=== PATIENT | female | born 1965 | race Caucasian/White ===

== ENCOUNTER 2020-09-24 09:35 | Inpatient (IN) | payer MEDICARE, MEDICAID, SELFPAY ==
--- NOTE | ~2020-09-24 | CT_ITS ---
EXAMINATION: CT guide absc cath placement, CT guide absc cath placement, CT guide absc cath placement DATE: 10/01/2020 14:43 INDICATION: Ruptured appendix with multiple intraperitoneal abscesses. TECHNIQUE: The procedure including the risks and benefits was discussed with the patient. Risks discu ssed included bleeding, allergic reaction and infection. The patient understood the risks and benefit s and agreed to proceed. The patient was confirmed to be receiving appropriate antibiotic coverage. C onscious sedation was provided by the department of anesthesia. An initial apparel cutter CT was obtained foll owing administration of with 100 mL Omnipaque-350 intravenous contrast. The skin overlying the midlin e infraumbilical region and left lower quadrant of the abdomen was prepped and draped in usual steril e fashion. Anesthetic was administered with 1% lidocaine subcutaneously. An 18-gauge trochar cathete r was inserted into both the midline and left lower quadrant loculated fluid collections utilizing CT guidance. The inner stylettes were removed with spontaneous efflux of cloudy yellowish fluid from deana th needles. 2 wires were advanced through both needles with positioning within the fluid collections confirmed by CT utilizing Seldinger technique the needle was removed over the wires and the tract ser ially dilated to 8 Estonian on the left and 10 Estonian at the midline. An 8.5 Fr catheter was inserted o candelario the wire into the left lower quadrant intraperitoneal fluid collection and a 10 Fr catheter was i nserted over the second wire into the midline infraumbilical intraperitoneal fluid collection. The lo ops were formed and locked and position confirmed by CT after which the metal stiffeners and wires we re removed. by trocar technique. The catheter was stitched to the skin with suture and antibiotic oin tment and sterile dressings were applied. 20 mL of fluid was aspirated from the midline fluid collect ion and 5 mL from the left lower quadrant fluid collection and sent to the lab for Gram stain and cul tures. Both catheters were then attached to suction drainage and were draining additional fluid. Attention was then transferred to the right lower quadrant periappendiceal gas and fluid collection. Additional apparel cutter CT images were obtained and this site was prepped and draped in usual sterile fashio n. Anesthetic was administered with 1% lidocaine subcutaneously. An 18-gauge trocar needle was advanc ed into the gas and fluid collection with positioning confirmed by CT. Utilizing similar Seldinger te chnique, a J-wire was advanced through the needle which was removed and the track serially dilated to 10 Fr and a 10 Fr catheter was placed with position confirmed by CT. The stiffener and wire were rem maribell,, antibiotic ointment applied, the catheter stitched to the skin and a sterile dressing applied. 10 mL of opaque cardona foul-smelling fluid was aspirated and sent to the lab for Gram stain and cultures . The catheter was then attached to suction drainage and was draining additional fluid at the conclus ion of the procedure. There were no immediate complications. The dose-length product was 779.57 mGy-cm for the placement of the first 2 abscess drains and 365.30 mGy-cm for the third drainage catheter placement. FINDINGS: CT images demonstrate catheters positioned within the largest midline pelvic likely intrape ritoneal fluid collection, within the smaller left lower quadrant intraperitoneal fluid collection an d finally into the gas and fluid collection at the site of the ruptured appendix. Fluid was aspirated from each collection for testing. IMPRESSION: 1. Successful CT-guided abscess drainage catheter placements in the midline of the pelvis and in both the left and right lower quadrants. 2. Aspirated fluid was sent for Gram stain and aerobic and anaerobic cultures from each of the draina ge catheters. 3. The catheters will be managed by
--- NOTE | ~2020-09-24 | CT_ITS ---
EXAMINATION: CT abdomen pelvis wo con DATE: 09/24/2020 11:42 INDICATION: Bowel perforation. Lower abdominal pain for 3 days. Nausea, vomiting and diarrhea. TECHNIQUE: Computed tomography (CT) of the abdomen and pelvis was performed without intravenous contr ast. The dose-length product was 1423.54 mGy-cm. Automated exposure control and iterative reconstruction technique were employed. COMPARISON: CT dated 11/19/2014. FINDINGS: Lung bases are unremarkable. Heart size normal. No significant pleural or pericardial effus ion. There is abnormal extraluminal gas and fluid in the expected location of the appendix in the right lo wer abdomen, suspicious for perforated appendicitis. Fatty infiltration of the liver. The spleen, pancreas, adrenal glands and left kidney are unremarkabl e. Right kidney is surgically absent. Small amount of free fluid in the pelvis. IMPRESSION: 1. Abnormal extraluminal fluid and gas in the expected location of the appendix, suspicious for perfo rated appendicitis. Dr. Antonio Bradford discussed with Dr. Ming Lagunas PA-C at 09/24/2020 11:55 CDT. Reviewed, dictated and finalized at location B. IMPRESSION: 1. Abnormal extraluminal fluid and gas in the expected location of the appendix , suspicious for perforated appendicitis. Dr. Antonio Bradford discussed with Dr. Ming Lagunas PA-C at 09/24/2020 11:55 CDT.
--- NOTE | ~2020-09-24 | CT_ITS ---
EXAMINATION: CT abdomen pelvis w con DATE: 09/29/2020 12:54 INDICATION: Ruptured appendicitis TECHNIQUE: Computed tomography (CT) of the abdomen and pelvis was performed with 100 mL Omnipaque-350 intravenous contrast. Automated exposure control and iterative reconstruction technique were employe d. The dose-length product was 1364.99 mGy-cm. COMPARISON: 09/24/2020 FINDINGS: Mild atelectasis at the lingula. Heart size is normal. No pericardial or pleural effusion. Diffuse he patic steatosis with focal sparing along the gallbladder fossa. Gallbladder, spleen, pancreas, bilate ral adrenal glands and left kidney are normal. Right kidney is not visualized and reportedly surgical ly absent. Bladder is normal. No pathologically enlarged abdominal or pelvic lymphadenopathy. Severe lower lumbar facet osteoarthritis. Small gas and fluid collection extending inferomedially from the tip of the cecum consistent with rup tured appendicitis. There are 3 larger and more well-defined rim-enhancing fluid collections in the p maury consistent with abscess. The largest is situated between the uterus and bladder measuring 9.5 x 3.4 x 4.5 cm. More posterior 7.6 x 3.5 x 4.3 cm collection along the left posterior margin of the no rmal uterus and more anterolateral 5.0 x 4.1 x 3.6 cm collection along side the left ovary and anteri or margin of the distal left iliopsoas muscle. IMPRESSION: 1. Persistent poorly defined small extra luminal gas and fluid collection in the expected region of t he nonvisualized appendix consistent with perforated appendicitis. 2. Increase in size and degree of organization of 3 loculated pelvic fluid collections consistent wit h abscess. Reviewed, dictated and finalized at location A. IMPRESSION: 1. Persistent poorly defined small extra luminal gas and fluid collection in th e expected region of the nonvisualized appendix consistent with perforated appe ndicitis. 2. Increase in size and degree of organization of 3 loculated pelvic fluid jazmine ections consistent with abscess.
--- NOTE | ~2020-09-24 | US_ITS ---
US renal BI 09/26/2020 16:09 Procedure: Realtime transabdominal ultrasound of the kidneys and bladder. Indication: Acute renal insufficiency Comparison: CT dated 09/24/2020 Findings: Right kidney is surgically absent. Left renal echotexture is normal without hydronephrosis, contour deforming mass or renal calculi. There is fatty infiltration of the liver. No abnormal enid s in the right renal fossa. Bladder wall is mildly thickened, possibly due to underdistention or cyst itis. Impression: 1: Mild bladder wall thickening which may be due to underdistention or cystitis. 2: Normal left kidney. Reviewed, dictated and finalized at location A. Impression: 1: Mild bladder wall thickening which may be due to underdistention or cystitis . 2: Normal left kidney.
[2020-09-24 09:41] VITALS: BP 100/65; PULSE 85; RESP 20; TEMP 36.4; O2SAT 95
[2020-09-24 10:15] LABS: Hematocrit 44.1 % (37.0-47.0); Hemoglobin 14.3 g/dL (12.0-15.0); Mean Corpuscular HGB Conc 32.4 g/dl (32-36); Mean Corpuscular Hemoglobin 28.6 pg (26-34); Mean Corpuscular Volume 88.2 fl (80-100); Mean Platelet Volume 9.7 fl (7.4-10.4); Platelet Count Result 335 k/mm3 (150-375)
[2020-09-24] MEDS: SODIUM CHLORIDE 0.9% IV 1,000 ML 999 ML IV CONT (10:15)
[2020-09-24] MEDS: ONDANSETRON INJ 4 MG/2 ML VIAL IV PUSH (10:15)
[2020-09-24] MEDS: FAMOTIDINE 20 MG/2 ML VIAL IV PUSH ×2 (10:15→20:47)
[2020-09-24] MEDS: MORPHINE SULFATE (*CRX) 4 MG/ML INJ IV PUSH ×2 (10:15→14:35)
[2020-09-24 10:24] LABS: Alanine Aminotransferase 9 U/L (4-35); Albumin Level 3.7 g/dL (3.5-5.1); Alkaline Phosphatase 82 U/L (38-126); Anion Gap 12 mmol/L (8-16); Aspartate Amino Transferase 19 U/L (14-36); Bilirubin,Total 0.7 mg/dL (0.2-1.3); Blood Urea Nitrogen 19 mg/dL (7-17); Calcium 9.3 mg/dL (8.4-10.2); Carbon Dioxide 21 mmol/L (22-30); Chloride 101 mmol/L (98-107); Estimated CRCL calculation 40 ml/min; Estimated Glomerular Filt Rate 29; Glucose 145 mg/dL (65-105); Lipase 46 U/L (23-300); Potassium 3.9 mmol/L (3.4-5.0); Sodium 134 mmol/L (137-145)
[2020-09-24 10:54] LABS: Add Urine Microscopic? YES; Appearance Urine Clear (Clear); Bacteria Urine Trace /hpf; Bilirubin Urine Negative (Negative); Blood Urine 2+ (Negative); Color Urine Amber (Yellow); Glucose Urine UA Negative (Negative); Ketones Urine Negative (Negative); Leukocyte Esterase Ur Negative LEU/UL (Negative); Mucus Urine Few /lpf; Nitrate Urine Negative (Negative); Protein Urine 1+ mg/dL (Negative); RBC Urine 51-75 /hpf (0-2); Specific Grav Ur 1.026 (1.001-1.035); Squamous Epithelial Cell Urine Occasional /hpf (Few); WBC Urine 0-3 /hpf
[2020-09-24] MEDS: HYDROmorphone HCL INJ (*CRX) 1 MG/ML SYR IV PUSH ×2 (11:10→20:48)
[2020-09-24 11:34] LABS: Band Neutrophils Percent 1 % (0-6); Lymphocytes Absolute Manual 3.74 K/mm3 (1.1-4.5); Monocytes Absolute Manual 1.76 K/mm3 (0.1-0.90); Monocytes Percent Manual 8 % (3-9); Neutrophils Percent Manual 74 % (46-73); Platelet Estimate Adequate (Adequate); Total Cells Counted 100
--- NOTE | 2020-09-24 11:39 | ED.GENADULT ---
HPI - General Adult General Chief complaint: Abdominal Pain Stated complaint: bilateral lower abd pain x 3days Time Seen by Provider: 09/24/20 09:49 Source: patient and RN notes reviewed Mode of arrival: ambulatory Limitations: no limitations History of Present Illness HPI narrative: Patient is a 54-year-old female who presents with 3 to 4 days duration of generalized abdominal pain worse in the periumbilical region patient notes that one of her family members had had some similar type symptoms and thought maybe this was the causative etiology patient on arrival to emergency department per EMS appears uncomfortable patient notes she had had some diarrhea and emesis a few days ago but has since not had a bowel movement in a couple of days patient denies rectal bleeding melena or hematemesis. Denies similar occurrence in the past and has not taken anything for her symptoms Related Data Home Medications Medication Instructions Recorded Confirmed alprazolam 1 mg PO QID PRN 09/24/20 metoprolol tartrate 200 mg PO DAILY 09/24/20 topiramate 100 mg PO TID 09/24/20 venlafaxine 75 mg PO DAILY 09/24/20 Allergies Allergy/AdvReac Type Severity Reaction Status Date / Time Penicillins Allergy Unknown Rash Verified 09/24/20 09:45 Review of Systems Review of Systems: All systems reviewed & are unremarkable except as noted in HPI and below PMFSH Past Medical History Medical History (Updated 09/24/20 @ 13:56 by Ming Lagunas PA-C) Chronic pain Peripheral neuropathy Social History Social History (Updated 09/24/20 @ 11:43 by Ming Lagunas PA-C) Smoking status: Current every day smoker Exam Narrative: Exam Narrative: GENERAL: Well-appearing, well-nourished, uncomfortable and in no acute distress. HEAD: Normocephalic, atraumatic. EYES: PERRLA and EOMI. ENT: Nares clear, no rhinorrhea or epistaxis. Mucous membranes moist. CHEST: Clear to auscultation. No respiratory distress. No wheezes rales or rhonchi HEART: Regular rate and rhythm. No murmur heard. Normal peripheral pulses. ABDOMEN: Soft, generalized tenderness with voluntary guarding, nondistended EXTREMITIES: Normal range of motion. No edema. SKIN: Warm, dry, no rash. NEURO: No focal deficits. Alert and oriented x3. PSYCH: Normal mood and affect. Course Course Emergency Course: Patient found to have ruptured appendicitis was given antibiotics fluids and pain medications in the emergency department discussion was made with surgeon who will admit the patient patient at this time continues to have pain and discomfort despite medications is aware of the case findings treatment plan and diagnosis and agrees to stay in hospital patient was seen by the surgical team in the emergency department. Consultations Consultation #1: Discussed case with Dr. Smalls who would like antibiotics continued hydration pain management and for the patient to be admitted to his service Date: 09/24/20 Vital Signs Vital signs: Vital Signs Temperature 97.5 F L 09/24/20 09:41 Pulse Rate 85 09/24/20 09:41 Respiratory Rate 20 09/24/20 09:41 Blood Pressure 100/65 09/24/20 09:41 Pulse Oximetry 95 09/24/20 09:41 Temperature 97.5 F L 09/24/20 09:41 Pulse Rate 112 H 09/24/20 12:34 Respiratory Rate 16 09/24/20 12:34 Blood Pressure 107/78 09/24/20 12:34 Pulse Oximetry 94 09/24/20 12:34 Medical Decision Making MDM Narrative Medical decision making narrative: ABCs and vital signs intact and stable patient found to have ruptured appendicitis hydrated and given antibiotics in the emergency department and will be admitted to the surgical service Vital Signs Vital Signs: Vital Signs Temperature 97.5 F L 09/24/20 09:41 Pulse Rate 85 09/24/20 09:41 Respiratory Rate 20 09/24/20 09:41 Blood Pressure 100/65 09/24/20 09:41 Pulse Oximetry 95 09/24/20 09:41 Temperature 97.5 F L 09/24/20 09:41 Pulse Rate 112 H 09/24/20 12:34 Respiratory Rate
[2020-09-24 12:29] LABS: Lactic Acid Reflex 1.6 mmol/L (0.7-2.1)
--- NOTE | 2020-09-24 12:32 | ECG_ITS ---
Measurements Intervals [place] Rate: 121 P: 36 [place]: 137 QRS: 9 QRSD: 99 T: 31 QT: 304 QTc: 432 Interpretive Statements SINUS TACHYCARDIA BASELINE ARTIFACT- II, III, AVF, V1-V3 ABNORMAL ECG Electronically Signed On 09-24-2020 19:06:50 CDT by Nicholas Levy D.O.
[2020-09-24 12:34] VITALS: BP 107/78; PULSE 112; RESP 16; O2SAT 94
[2020-09-24] MEDS: ERTAPENEM 1 GM/NS 50 ML 1 GM/50 ML BAG IVPB (12:39)
--- NOTE | 2020-09-24 14:46 | PM.IMHP ---
H&P: HPI History of Present Illness Date/Time: 09/24/20 14:46 Chief Complaint: RLQ abdominal pain Narrative: This is a 54-year-old female with a history of tachyarrhythmias, migraines, tobacco abuse, and kidney cancer status post right nephrectomy 10 years ago. She reports having nausea and vomiting early last week. She had attributed this to a viral gastroenteritis because her grandson had similar symptoms from a virus a few days prior. These symptoms resolved and she developed lower abdominal pain 3 days ago around 5:00 am. The pain was constant, but tolerable initially. Yesterday, her pain became progressively worse and was intolerable by this morning. Due to the unrelenting pain, she presented to the ER for further evaluation. CT scan of the abdomen and pelvis showed abnormal extraluminal fluid and gas in the expected location of the appendix, suspicious for perforated appendicitis. Labs showed a white blood cell count of 22,000, lactic acid 1.6, sodium 134, BUN 19, and creatinine 1.8. In the ER, she became tachycardic with a heart rate of 112. EKG performed and showed sinus tachycardia. Our service was contacted by the ER provider for evaluation of abdominal pain and possible acute perforated appendicitis. The patient is now seen in the ER. She is still very uncomfortably and reports that her abdominal pain became more localized in the RLQ yesterday. Denies fever or chills. She is unsure of when her last bowel movement was, but reports that her stools have remained loose following her diarrhea last week. Urinalysis had 51-75 RBCs. She denies any recent menstrual cycles, which she only has every few months. No other recent urinary symptoms. She also reports poor oral intake over the past few days. No other complaints at this time. Patient thought that she has had a colonoscopy in the past at [facility], but could not recall any further information regarding this. I reviewed our records and do not see a colonoscopy in the past at this facility, although she has had an EGD with esophageal dilatation in 2010. Review of Systems Review of Systems: All systems reviewed & are unremarkable except as noted in HPI and below Constitutional: Constitutional: Reports as per HPI, Denies chills, Denies fatigue and Denies fever(s) Eyes: Eyes: Reports no additional eye complaints and Denies change in vision ENT: Reports system reviewed and no additional complaints, except as documented, Reports Normal hearing present and Denies dizziness Cardiovascular: Cardiovascular: Reports no additional cardiovascular complaints, Denies chest pain, Denies leg edema and Denies dyspnea Respiratory: Respiratory: Reports no additional respiratory complaints, Denies cough and Denies dyspnea Gastrointestinal: Gastrointestinal: Reports as per HPI, Reports no additional gastrointestinal complaints and Reports abdominal pain Genitourinary: Genitourinary: Denies hematuria and Denies dysuria Musculoskeletal: Musculoskeletal: Denies abnormal gait, Denies deformity, Denies joint swelling, Denies numbness and Denies tingling Integumentary/Breasts: Skin/Breast: Denies wounds and Denies jaundice Neurologic: Reports system reviewed and no additional complaints, except as documented, Reports Normal hearing present, Denies abnormal gait, Denies dizziness, Denies focal weakness, Denies numbness and Denies tingling Psychiatric: Psychiatric: Denies anxiety and Denies depression Endocrine: Endocrine: Denies fatigue [facility] Past Medical History Medical History (Updated 09/24/20 @ 15:31 by LISA Carlton) Anxiety Chronic pain Depression History of hypertension History of supraventricular tachycardia History of SVT and hypertension, which she takes metoprolol for now. Migraines Peripheral neuropathy Tobacco abuse Surgical History Surgical History (Updated 09/24/20 @ 15:16 by LISA Carlton) History of esophagogastroduodenoscopy (EGD) EGD with dilatation of an esophageal
[2020-09-24 15:10] VITALS: BP 102/66; PULSE 118; RESP 20; O2SAT 94
--- NOTE | 2020-09-24 15:36 | ADMGEN ---
This patient, Katherine Nuno, was admitted to 2 Medical Room 260-01. Patient/family oriented to hospital policies and general routines including ID bracelet, bed and alarms, visiting hours, pain management, procedures, bathroom and other care routines, personal items, smoking policy, room service/diet, and visiting hours. Information on how to activate the Rapid Response Team has been discussed. Patient/Family are encouraged to report perceived risks to care and to ask questions if they do not understand what they are told or what they should do.
[2020-09-24 16:00] VITALS: PULSE 109
[2020-09-24] MEDS: LACTATED RINGERS 1,000 ML 125 ML IV CONT (16:03)
[2020-09-24] MEDS: metroNIDAZOLE 500 MG/ISO 100ML 500 MG/100 ML BAG 100 MG IVPB ×2 (16:03→21:35)
[2020-09-24] MEDS: NICOTINE (*PBKC) 21 MG PATCH 1 PATCH TRANSDERM (17:23)
[2020-09-24] MEDS: PANTOPRAZOLE SODIUM IV 40 MG VIAL IV PUSH (17:23)
[2020-09-24 20:00] VITALS: PULSE 94
[2020-09-24 20:42] VITALS: BP 98/62; PULSE 88; RESP 20; TEMP 36.6; O2SAT 97
[2020-09-24] MEDS: VENLAFAXINE HCL XR 75 MG CAP.ER.24H PO (20:47)
[2020-09-25] VITALS (10 sets, daily range): BP systolic 100–112; BP diastolic 59–73; PULSE 65–106; RESP 20; TEMP 35.6–36.1; O2SAT 94–100
[2020-09-25] MEDS: HYDROmorphone HCL INJ (*CRX) 1 MG/ML SYR IV PUSH ×4 (01:47→19:35)
[2020-09-25] MEDS: LACTATED RINGERS 1,000 ML 125 ML IV CONT (04:43)
[2020-09-25 05:39] LABS: Basophils Percent Auto 0.2 % (0.2-1.2); Eosinophils Percent Auto 0.1 % (0-4.4); Hematocrit 38.3 % (37.0-47.0); Hemoglobin 12.4 g/dL (12.0-15.0); Immature Granulocyte Absolute 0.11 K/mm3 (0.00-0.031); Immature Granulocyte Percent A 0.6 % (0-0.5); Lymphocytes Absolute Auto 1.15 K/mm3 (0.9-3.2); Lymphocytes Percent Auto 6.3 % (18.3-44.2); Mean Corpuscular HGB Conc 32.4 g/dl (32-36); Mean Corpuscular Hemoglobin 28.6 pg (26-34); Mean Corpuscular Volume 88.5 fl (80-100); Monocytes Absolute Auto 0.8 K/mm3 (0.1-0.6); Monocytes Percent Auto 4.3 % (2.6-8.5); Neutrophils Absolute Auto 16.2 K/mm3 (1.3-6.7); Neutrophils Percent Auto 88.5 % (45.5-73.1); Platelet Count Result 315 k/mm3 (150-375); Red Blood Count 4.33 M/mm3 (4.2-5.4); Red Cell Distribution Width 14.6 % (11.5-14.5); White Blood Count 18.3 K/mm3 (4.5-10.0)
[2020-09-25] MEDS: metroNIDAZOLE 500 MG/ISO 100ML 500 MG/100 ML BAG 100 MG IVPB ×3 (05:40→21:12)
[2020-09-25 05:49] LABS: Magnesium 1.5 mg/dL (1.6-2.3)
[2020-09-25 05:50] LABS: Alanine Aminotransferase 9 U/L (4-35); Albumin Level 3.2 g/dL (3.5-5.1); Alkaline Phosphatase 69 U/L (38-126); Anion Gap 11 mmol/L (8-16); Aspartate Amino Transferase 22 U/L (14-36); Bilirubin,Total 1.1 mg/dL (0.2-1.3); Blood Urea Nitrogen 28 mg/dL (7-17); Calcium 8.4 mg/dL (8.4-10.2); Carbon Dioxide 21 mmol/L (22-30); Chloride 102 mmol/L (98-107); Estimated CRCL calculation 36 ml/min; Estimated Glomerular Filt Rate 26; Glucose 120 mg/dL (65-105); Sodium 134 mmol/L (137-145)
[2020-09-25] MEDS: ERTAPENEM 1 GM/NS 50 ML 1 GM/50 ML BAG IVPB (08:38)
[2020-09-25] MEDS: METOPROLOL TARTRATE 50 MG TAB 200 MG PO (08:38)
[2020-09-25] MEDS: FAMOTIDINE 20 MG/2 ML VIAL IV PUSH ×2 (08:39→21:12)
[2020-09-25] MEDS: TOPIRAMATE 100 MG TABLET PO ×3 (08:39→23:45)
[2020-09-25] MEDS: NICOTINE (*PBKC) 21 MG PATCH 1 PATCH TRANSDERM (08:40)
[2020-09-25] MEDS: PANTOPRAZOLE SODIUM IV 40 MG VIAL IV PUSH (08:40)
--- NOTE | 2020-09-25 13:49 | PM.PNGS ---
Progress Note: A&P Assessment and Plan (1) Appendicitis with perforation: Code(s): K35.32 - Acute appendicitis with perforation and localized peritonitis, without abscess Status: Acute Assessment and Plan: CT showed a small localized area of extraluminal gas and fluid in the expected area of the appendix, suggesting perforated acute appendicitis, and treating as such. Continue broad-spectrum IV antibiotics. Pain has improved and WBC coming down today. Will start a clear liquid diet. Encouraged walking the halls. Repeat labs tomorrow. (2) Sepsis: Code(s): A41.9 - Sepsis, unspecified organism Status: Acute Assessment and Plan: Sepsis criteria met with tachycardia and leukocytosis in the setting a known infection. Likely secondary to #1 above. Blood cultures pending. Tachycardia improved with IV fluids. Continue IV ertapenem/metronidazole. WBC trending down to 18,000 today. Trend labs. (3) Acute renal failure (ARF): Code(s): N17.9 - Acute kidney failure, unspecified Status: Acute Assessment and Plan: Creatinine up to 2.0 today with hematuria. S/p right nephrectomy 10 years ago. Continue IV fluids at current rate. Consult Nephrology for their recommendations. (4) Hematuria: Code(s): R31.9 - Hematuria, unspecified Status: Acute Assessment and Plan: Will order straight cath and send urine for UA with micro with culture. See plan above, Nephrology consulted. Additional Plan I have discussed the patient's case and plan of care with Dr. Smalls. Subjective Subjective Date/Time Seen: 09/25/20 13:49 Patient reports: feels better, pain is less, flatus, no bowel movement and afebrile Interval history: Patient seen this afternoon and reports she feels better in regards to her abdominal pain. She feels this is more tolerable and she is more comfortable. Denies nausea, vomiting, or bloating. She does complain of burning with voiding and since admission has noticed her urine has started to appear more red. She has no other complaints. She does report that 6 weeks ago she had a bidet installed on her toilet and has been using this to rinse after going to the bathroom. She also now thinks today that the burning with voiding may have been present for a few days. Review of Systems Review of Systems: All systems reviewed & are unremarkable except as noted in HPI and below Exam Const: General: comfortable, no acute distress, alert and awake Orientation/consciousness: patient oriented x3 Resp: Effort & Inspection: normal respiratory effort Auscultation: wheezes expiratory wheezes (anteriorly in upper lobes) and diminished lung sounds bilateral throughout Cardio: Rate: regular rate Rhythm: regular rhythm GI: Inspection: non-distended and obesity GI Palp: Yes Soft to palpation, Yes Tenderness to palpation present (GI) (nail making machine tender diffusely but worse in RLQ, improved from yesterday), Yes Guarding due to palpation present (GI) (RLQ) and No Rebound tenderness present Auscultation: Hypoactive bowel sounds present Skin: General skin exam: normal color Neuro: General: moves all extremities and no focal motor deficits Extrem: General: no clubbing, cyanosis or edema and no calf tenderness Psych: Mental Status: mental status grossly normal Insight: Good insight present (Psych) Judgement: Good judgement present (Psych) Objective Data Vital Signs Vital Signs: Vital Signs - 24 hr 09/24/20 15:10 09/24/20 16:00 09/24/20 20:00 Temperature Pulse Rate 118 H 109 H 94 Respiratory Rate 20 Blood Pressure 102/66 Pulse Oximetry 94 09/24/20 20:42 09/25/20 00:00 09/25/20 04:00 Temperature 97.9 F Pulse Rate 88 99 100 Respiratory Rate 20 Blood Pressure 98/62 L Pulse Oximetry 97 09/25/20 05:15 09/25/20 08:00 09/25/20 10:03 Temperature 97 F L Pulse Rate 65 100 Respiratory Rate 20 Blood Pressure 106/73 112/65 Pulse Oximetry 94 94 Intake/Out
[2020-09-25] MEDS: LACTATED RINGERS 1,000 ML 150 ML IV CONT (15:28)
[2020-09-25 15:58] LABS: Add Urine Microscopic? YES; Appearance Urine Clear (Clear); Bacteria Urine Trace /hpf; Bilirubin Urine Negative (Negative); Blood Urine 2+ (Negative); Color Urine Amber (Yellow); Glucose Urine UA Negative (Negative); Ketones Urine Negative (Negative); Leukocyte Esterase Ur Negative LEU/UL (Negative); Mucus Urine Rare /lpf; Nitrate Urine Negative (Negative); Protein Urine 1+ mg/dL (Negative); Specific Grav Ur 1.025 (1.001-1.035); Squamous Epithelial Cell Urine Rare /hpf (Few); WBC Urine 0-3 /hpf
--- NOTE | 2020-09-25 16:44 | PM.CNNEP ---
Assessment and Plan Assessment and plan (1) Acute renal failure (ARF): Code(s): N17.9 - Acute kidney failure, unspecified Status: Acute Assessment and Plan: presumably normal baseline creatinine known history of solitary kidney due to infection/early sepsis (from #3)? check renal ultrasound check urine electrolytes and urine eosinophils follow trend of UOP and repeat labs (2) Hematuria: Code(s): R31.9 - Hematuria, unspecified Status: Acute Assessment and Plan: as noted by urinalysis related to infection? follow trend for now may need Urological evaluation if persists (3) Appendicitis with perforation: Code(s): K35.32 - Acute appendicitis with perforation and localized peritonitis, without abscess Status: Acute Assessment and Plan: as noted by admission imaging General Surgery following on IV antibiotics follow cultures Long and extensive discussion (> 20 minutes) with patient and her daughter at bedside regarding the above issues along with evaluation to date/further testing as well as plan of care. Will continue to follow. History of Present Illness Reason for Consult Consult date: 09/25/20 Reason for consult: acute renal failure Chief Complaint Chief complaint: perforated appendicitis History of Present Illness Narrative: The patient is a 54-year-old female with a past medical history as outlined below who presented to [facility] Emergency room with complaints of abdominal pain. The patient developed abdominal pain approximately 3 days prior to admission. Initially, the pain was constant but tolerable. However over the course of the next few days the pain became progressively more worse and eventually so severe and unrelenting that she presented to the emergency room. It should be noted that she did have some issues with nausea and vomiting earlier in the week which she attributed this to a possible gastroenteritis as she had known sick contacts with similar symptoms. The nausea vomiting is Leslie eventually resolved prior to the abdominal pain that she currently presented with to the emergency room. Workup and evaluation emergency room demonstrated the patient to be hemodynamically stable but quite high quite tachycardic. She was in a significant amount of pain localized to the right lower quadrant. Routine blood test demonstrated elevated white blood cell count, mildly elevated lactic acid, an elevated BUN and creatinine. A CT scan of the abdomen pelvis was done given her abdominal pain which demonstrated possible acute perforated appendicitis with findings of abnormal extraluminal fluid and gas in the expected location of the appendix. She reported no a issues or problems with fevers or chills Um but does note that she has not had a bowel movement in a while. Her urinalysis was significant for abundant red blood cells but she denies any symptoms of dysuria or increased urination. With the a for mentioned abdominal pain, she does report though that she is not being drinking very well. Given these constellation of symptoms and laboratory / imaging findings, General surgery was consulted and she an appropriate cultures were obtained and she was started on broad-spectrum IV antibiotic therapy. Since her admission, she has been continue on IV antibiotic therapy with slow improvement in her white blood cell count and abdominal symptoms. Unfortunately, despite IV fluid resuscitation, her kidney function has not really improved all that much and she still has up persistent evidence of microscopic hematuria without overt evidence of urinary tract infection. Renal consultation was requested due to her acute kidney injury/acute renal failure as well as her hematuria. From my discussion with the patient, despite her history of only 1 kidney secondary to a right nephrectomy approximately 10 years ago, she has never been told that she had any issue
[2020-09-25] MEDS: ACETAMINOPHEN 500 MG TABLET 1000 MG PO (21:12)
[2020-09-25] MEDS: MAGNESIUM OXIDE 400 MG TABLET PO (21:12)
[2020-09-25] MEDS: VENLAFAXINE HCL XR 75 MG CAP.ER.24H PO (21:12)
[2020-09-26] VITALS (10 sets, daily range): BP systolic 103–122; BP diastolic 63–64; PULSE 75–102; RESP 18–22; TEMP 36.1–36.9; O2SAT 95–100
[2020-09-26 01:30] LABS: Creatinine Urine 67.1 mg/dL; Total Protein Urine Random 22 mg/dL; Ur Ttl Prot Creatinine Ratio 0.33 mg/mg (0-0.20)
[2020-09-26 01:36] LABS: Sodium Urine Random < 5 meq/L
[2020-09-26] MEDS: HYDROmorphone HCL INJ (*CRX) 1 MG/ML SYR 0.5 MG IV PUSH ×2 (01:53→21:27)
[2020-09-26] MEDS: LACTATED RINGERS 1,000 ML 150 ML IV CONT ×3 (01:57→20:42)
[2020-09-26] MEDS: ACETAMINOPHEN 500 MG TABLET 1000 MG PO ×3 (05:13→20:44)
[2020-09-26] MEDS: metroNIDAZOLE 500 MG/ISO 100ML 500 MG/100 ML BAG 100 MG IVPB ×3 (05:13→20:44)
[2020-09-26 05:47] LABS: Basophils Percent Auto 0.2 % (0.2-1.2); Eosinophils Absolute Auto 0.2 K/mm3 (0-0.3); Eosinophils Percent Auto 1.3 % (0-4.4); Hematocrit 35.5 % (37.0-47.0); Hemoglobin 11.5 g/dL (12.0-15.0); Immature Granulocyte Percent A 1.4 % (0-0.5); Lymphocytes Absolute Auto 1.11 K/mm3 (0.9-3.2); Lymphocytes Percent Auto 7.5 % (18.3-44.2); Mean Corpuscular HGB Conc 32.4 g/dl (32-36); Mean Corpuscular Hemoglobin 28.3 pg (26-34); Mean Corpuscular Volume 87.2 fl (80-100); Mean Platelet Volume 10.3 fl (7.4-10.4); Monocytes Absolute Auto 0.4 K/mm3 (0.1-0.6); Monocytes Percent Auto 2.9 % (2.6-8.5); Neutrophils Absolute Auto 12.8 K/mm3 (1.3-6.7); Neutrophils Percent Auto 86.7 % (45.5-73.1); Platelet Count Result 291 k/mm3 (150-375); Red Blood Count 4.07 M/mm3 (4.2-5.4); Red Cell Distribution Width 14.6 % (11.5-14.5); White Blood Count 14.8 K/mm3 (4.5-10.0)
[2020-09-26] MEDS: HYDROmorphone HCL INJ (*CRX) 1 MG/ML SYR IV PUSH ×2 (05:54→12:46)
[2020-09-26 05:59] LABS: Albumin Level 3.1 g/dL (3.5-5.1); Anion Gap 10 mmol/L (8-16); Blood Urea Nitrogen 22 mg/dL (7-17); Calcium 8.3 mg/dL (8.4-10.2); Carbon Dioxide 23 mmol/L (22-30); Chloride 102 mmol/L (98-107); Estimated CRCL calculation 58 ml/min; Estimated Glomerular Filt Rate 47; Glucose 87 mg/dL (65-105); Magnesium 1.8 mg/dL (1.6-2.3); Phosphorus 3.3 mg/dL (2.5-4.5); Potassium 3.4 mmol/L (3.4-5.0); Sodium 135 mmol/L (137-145)
[2020-09-26 07:34] LABS: Eosinophil Urine None Seen % (None Seen)
--- NOTE | 2020-09-26 09:13 | PM.PNGS ---
Progress Note: A&P Assessment and Plan (1) Appendicitis with perforation: Code(s): K35.32 - Acute appendicitis with perforation and localized peritonitis, without abscess Status: Acute Assessment and Plan: CT showed a small localized area of extraluminal gas and fluid in the expected area of the appendix, suggesting perforated acute appendicitis, and treating as such. Continue broad-spectrum IV antibiotics. Pain has improved and WBC coming down today. Will advanced to full liquid diet. Will give a Dulcolax suppository today. Encouraged increasing activity. Repeat labs tomorrow. (2) Sepsis: Code(s): A41.9 - Sepsis, unspecified organism Status: Acute Assessment and Plan: Sepsis criteria met with tachycardia and leukocytosis in the setting a known infection. Likely secondary to #1 above. Blood cultures showing gram-negative bacilli in anaerobic bottle only, awaiting final results. Continue IV ertapenem/metronidazole. WBC continues to trend down. Trend labs. (3) Acute renal failure (ARF): Code(s): N17.9 - Acute kidney failure, unspecified Status: Acute Assessment and Plan: Creatinine improving down to 1.2 today. S/p right nephrectomy 10 years ago. Appreciate Nephrology's help. (4) Hematuria: Code(s): R31.9 - Hematuria, unspecified Status: Acute Assessment and Plan: Straight cath urinalysis showed much less RBCs (3-5), negative nitrate, negative leukocytes, 2+ blood, 1+ protein, urinobilinogen 4. Does not appear to be a urinary tract infection based on urinalysis, although she is on IV antibiotics. Unclear why she was having hematuria. Appreciate Nephrology consultation. Additional Plan I discussed the case and plan of care with Dr. Smalls. Subjective Subjective Date/Time Seen: 09/26/20 09:13 Patient reports: no new complaints, feels better, tolerating liquids well, flatus, no bowel movement and afebrile Interval history: Patient seen this morning eating a clear liquid tray. She reports feeling a little better and more coherent today. Reports abdominal pain is about the same today. Tolerating liquids well without nausea, vomiting, or bloating. Reports a small amount of gas, but still no bowel movement since admission. Reports dysuria is significantly better today. No other complaints at this time. Review of Systems Review of Systems: All systems reviewed & are unremarkable except as noted in HPI and below Constitutional: Constitutional: Reports as per HPI, Reports no additional constitutional complaints, Denies chills and Denies fever(s) Cardiovascular: Cardiovascular: Reports no additional cardiovascular complaints, Denies chest pain and Denies leg edema Respiratory: Respiratory: Reports no additional respiratory complaints, Denies cough and Denies dyspnea Gastrointestinal: Gastrointestinal: Reports as per HPI and Reports no additional gastrointestinal complaints Neurologic: Reports system reviewed and no additional complaints, except as documented, Denies Abnormal speech present and Denies focal weakness Exam Const: General: comfortable, no acute distress, alert and awake Nutritional Appearance: obese Resp: Effort & Inspection: normal respiratory effort Auscultation: diminished lung sounds bilateral throughout Cardio: Rate: regular rate Rhythm: regular rhythm GI: Inspection: non-distended, obesity and no visible herniation GI Palp: Yes Soft to palpation, Yes Tenderness to palpation present (GI) ( Tender throughout, worse in right lower quadrant), Yes Guarding due to palpation present (GI) ( right lower quadrant) and No Rebound tenderness present Auscultation: normal bowel sounds Neuro: General: moves all extremities and no focal motor deficits Extrem: General: no clubbing, cyanosis or edema and no calf tenderness Psych: Mental Status: mental status grossly normal Objective Data Vital Signs Vital Signs: Vital Signs - 24 hr 06
[2020-09-26] MEDS: ERTAPENEM 1 GM/NS 50 ML 1 GM/50 ML BAG IVPB (09:19)
[2020-09-26] MEDS: VENLAFAXINE HCL XR 75 MG CAP.ER.24H PO ×2 (09:20→20:44)
[2020-09-26] MEDS: MAGNESIUM OXIDE 400 MG TABLET PO (09:20)
[2020-09-26] MEDS: NICOTINE (*PBKC) 21 MG PATCH 1 PATCH TRANSDERM (09:20)
[2020-09-26] MEDS: METOPROLOL TARTRATE 50 MG TAB 200 MG PO (09:20)
[2020-09-26] MEDS: TOPIRAMATE 100 MG TABLET PO ×2 (09:20→16:44)
[2020-09-26] MEDS: FAMOTIDINE 20 MG/2 ML VIAL IV PUSH ×2 (09:21→20:44)
[2020-09-26] MEDS: BISACODYL 10 MG SUPPOSITORY RECTAL (09:34)
--- NOTE | 2020-09-26 14:36 | PM.PNNEP ---
Progress Note: A&P Assessment and Plan (1) Acute renal failure (ARF): Code(s): N17.9 - Acute kidney failure, unspecified Status: Acute Assessment and Plan: presumably normal baseline creatinine known history of solitary kidney due to: - infection/early sepsis -- blood culture positive for gram negative bacilli - prerenal factors -- urine electrolytes c/w pre-renal azotemia - relative hypotension renal ultrasound without evidence of obstruction urine eosinophils negative follow trend of UOP and repeat labs (2) Hematuria: Code(s): R31.9 - Hematuria, unspecified Status: Acute Assessment and Plan: as noted by urinalysis related to infection(?) but already on antibiotics follow trend for now may need Urological evaluation if persists once acute medical issues resolving (3) Sepsis: Code(s): A41.9 - Sepsis, unspecified organism Status: Acute Assessment and Plan: blood cultures with gram negative bacilli on antibiotics follow repeat cultures follow hemodynamics (4) Appendicitis with perforation: Code(s): K35.32 - Acute appendicitis with perforation and localized peritonitis, without abscess Status: Acute Assessment and Plan: as noted by admission imaging General Surgery following on IV antibiotics follow cultures (see #3) Will continue to follow. Subjective Date/time seen: 09/26/20 14:36 She seems to be doing better today -- she still has some abdominal pain but it is tolerable and she is attempting to take oral intake as tolerated; some dysuria reported but no other complaints voiced; reasonable UOP noted and improvement in creatinine by AM labs. Exam Narrative: Exam Narrative: General: WD/WN female in NAD Heart: normal S1 and S2; no rub Lungs: clear to auscultation Abdomen: soft, nontender, nondistended, positive bowel sounds Extremities: no cyanosis or clubbing; no edema Skin: warm and dry Objective Data Vital Signs Vital Signs: Vital Signs Temp Pulse Resp BP Pulse Ox 09/26/20 14:00 36.9 C 84 18 103/63 95 09/26/20 12:00 75 09/26/20 09:20 97 09/26/20 08:00 98 09/26/20 05:23 36.1 C L 102 H 22 H 110/64 99 09/26/20 04:00 102 H 09/26/20 00:00 101 H 09/25/20 20:09 35.9 C L 96 20 112/59 L 95 09/25/20 20:00 106 H Intake/Output Intake/Output: Intake & Output 09/23/20 09/24/20 09/25/20 09/26/20 23:59 23:59 23:59 23:59 Intake Total 1350 3450 2577 Output Total 200 1000 1000 Balance 1150 2450 1577 Meds/Results Medications: Active Medications Generic Name Dose Route Start Last Admin Trade Name Freq PRN Reason Stop Dose Admin Acetaminophen 1,000 mg 09/25/20 22:00 09/26/20 15:08 Acetaminophen 500 Mg Tablet PO 1,000 mg Q8HR NURY Administration Famotidine 20 mg 09/24/20 21:00 09/26/20 09:21 Famotidine 20 Mg/2 Ml Vial IV PUSH 20 mg Q12HR NURY Administration Hydromorphone HCl 1 mg 09/24/20 14:02 09/26/20 12:46 Hydromorphone Hcl Inj (*Crx) 1 Mg/Ml Syr IV PUSH 1 mg Q4H PRN Administration Pain Rated 7-10 Hydromorphone HCl 0.5 mg 09/25/20 16:53 09/26/20 01:53 Hydromorphone Hcl Inj (*Crx) 1 Mg/Ml Syr IV PUSH 0.5 mg Q4H PRN Administration Pain Rated 4-6 Ertapenem 1 gm in 50 mls @ 100 mls/hr 09/25/20 09:00 09/26/20 15:15 Invanz 1 Gm/Ns 50 Ml IVPB Infused Q24H NURY Infusion Lactated Ringer's 1,000 mls @ 150 mls/hr 09/24/20 14:05 09/26/20 16:44 Lr - Lactated Ringers Iv IV CONT 150 mls/hr .Q6H40M NURY Infusion Metronidazole 500 mg in 100 mls @ 100 mls/hr 09/24/20 15:45 09/26/20 16:30 Flagyl 500 Mg/Iso Soln 100 Ml IVPB Infused Q8HR NURY Infusion Magnesium Oxide 400 mg 09/25/20 21:00 09/26/20 09:20 Magnesium Oxide 400 Mg Tablet PO 400 mg QAM NURY Administration Metoprolol Tartrate 200 mg 09/25/20 09:00 09/26/20
[2020-09-27] VITALS (7 sets, daily range): BP systolic 102–116; BP diastolic 55–78; PULSE 73–92; RESP 16–20; TEMP 35.9–37.1; O2SAT 96–100
[2020-09-27] MEDS: TOPIRAMATE 100 MG TABLET PO ×4 (00:31→23:44)
[2020-09-27] MEDS: ONDANSETRON INJ 4 MG/2 ML VIAL IV PUSH (01:49)
[2020-09-27] MEDS: LACTATED RINGERS 1,000 ML 150 ML IV CONT (04:11)
[2020-09-27] MEDS: metroNIDAZOLE 500 MG/ISO 100ML 500 MG/100 ML BAG 100 MG IVPB ×3 (05:22→21:32)
[2020-09-27] MEDS: HYDROmorphone HCL INJ (*CRX) 1 MG/ML SYR IV PUSH (05:22)
[2020-09-27 05:40] LABS: Basophils Absolute Auto 0.1 K/mm3 (0.0-0.1); Basophils Percent Auto 0.3 % (0.2-1.2); Eosinophils Absolute Auto 0.2 K/mm3 (0-0.3); Eosinophils Percent Auto 1.5 % (0-4.4); Hematocrit 35.6 % (37.0-47.0); Hemoglobin 11.3 g/dL (12.0-15.0); Immature Granulocyte Absolute 0.15 K/mm3 (0.00-0.031); Lymphocytes Absolute Auto 1.12 K/mm3 (0.9-3.2); Lymphocytes Percent Auto 7.2 % (18.3-44.2); Mean Corpuscular HGB Conc 31.7 g/dl (32-36); Mean Corpuscular Hemoglobin 28.4 pg (26-34); Mean Corpuscular Volume 89.4 fl (80-100); Mean Platelet Volume 10.1 fl (7.4-10.4); Monocytes Absolute Auto 0.5 K/mm3 (0.1-0.6); Monocytes Percent Auto 3.4 % (2.6-8.5); Neutrophils Absolute Auto 13.5 K/mm3 (1.3-6.7); Neutrophils Percent Auto 86.6 % (45.5-73.1); Platelet Count Result 294 k/mm3 (150-375); Red Blood Count 3.98 M/mm3 (4.2-5.4); White Blood Count 15.5 K/mm3 (4.5-10.0)
[2020-09-27 05:56] LABS: Prealbumin 4.5 mg/dL (17.6-36.0)
[2020-09-27 06:00] LABS: Anion Gap 5 mmol/L (8-16); Blood Urea Nitrogen 14 mg/dL (7-17); Calcium 8.4 mg/dL (8.4-10.2); Carbon Dioxide 26 mmol/L (22-30); Chloride 106 mmol/L (98-107); Estimated CRCL calculation 76 ml/min; Estimated Glomerular Filt Rate > 60; Glucose 103 mg/dL (65-105); Potassium 3.3 mmol/L (3.4-5.0); Sodium 137 mmol/L (137-145)
[2020-09-27] MEDS: ACETAMINOPHEN 500 MG TABLET 1000 MG PO ×3 (06:41→21:33)
--- NOTE | 2020-09-27 07:56 | P.PNNP_ITS ---
Progress Note: A&P Assessment and Plan (1) Acute renal failure (ARF): Code(s): N17.9 - Acute kidney failure, unspecified Status: Acute Assessment and Plan: * presumably normal baseline creatinine * known history of solitary kidney * due to: - infection/early sepsis -- blood culture positive for gram negative bacilli - prerenal factors -- urine electrolytes c/w pre-renal azotemia - relative hypotension * renal ultrasound without evidence of obstruction * urine eosinophils negative * urine sodium pre renal * creatinine has fallen to normal value now. She is eating well. I think we can stop her IV fluids. * I will sign off. (2) Hematuria: Code(s): R31.9 - Hematuria, unspecified Status: Acute Assessment and Plan: * as noted by urinalysis * related to infection(?) but already on antibiotics * follow trend for now * Repeat urine plus culture has been ordered. * If hematuria persists then she will need a Urology consult at some point. (3) Sepsis: Code(s): A41.9 - Sepsis, unspecified organism Status: Acute Assessment and Plan: * blood cultures with gram negative bacilli * on antibiotics * follow repeat cultures * follow hemodynamics (4) Appendicitis with perforation: Code(s): K35.32 - Acute appendicitis with perforation and localized peritonitis, without abscess Status: Acute Assessment and Plan: * as noted by admission imaging * General Surgery following * on IV antibiotics * follow cultures (see #3) Subjective Date/time seen: 09/27/20 07:56 Interval history: The patient feels better today. Making lots of urine. Tolerating clear liquid diet. Exam Narrative: Exam Narrative: General: WD/WN female in NAD Heart: normal S1 and S2; no rub Or gallop Lungs: clear to auscultation Abdomen: soft, nontender, nondistended, positive bowel sounds Extremities: no cyanosis or clubbing; no edema Skin: no rash Objective Data Vital Signs Vital Signs: Vital Signs - 24 hr 09/26/20 08:00 09/26/20 09:20 09/26/20 12:00 Temperature Pulse Rate 98 97 75 Respiratory Rate Blood Pressure Pulse Oximetry 09/26/20 14:00 09/26/20 16:00 09/26/20 20:00 Temperature 36.9 C Pulse Rate 84 82 81 Respiratory Rate 18 18 Blood Pressure 103/63 Pulse Oximetry 95 100 09/26/20 21:16 09/27/20 00:00 09/27/20 04:00 Temperature 36.3 C L Pulse Rate 81 91 91 Respiratory Rate 18 Blood Pressure 122/63 Pulse Oximetry 100 09/27/20 05:58 Temperature 36.6 C Pulse Rate 92 Respiratory Rate 20 Blood Pressure 112/64 Pulse Oximetry 100 Intake/Output Intake/Output: Intake & Output 09/24/20 09/25/20 09/26/20 09/27/20 23:59 23:59 23:59 23:59 Intake Total 1350 3450 3730 1250 Output Total 200 1000 2800 1950 Balance 1150 2450 930 -700 Meds/Results Medications: Active Medications Generic Name Dose Route Start Last Admin Trade Name Erica PRN Reason Stop Dose Admin Acetaminophen 1,000 mg 09/25/20 22:00 09/27/20 06:41
--- NOTE | 2020-09-27 07:56 | PM.PNNEP ---
Progress Note: A&P Assessment and Plan (1) Acute renal failure (ARF): Code(s): N17.9 - Acute kidney failure, unspecified Status: Acute Assessment and Plan: presumably normal baseline creatinine known history of solitary kidney due to: - infection/early sepsis -- blood culture positive for gram negative bacilli - prerenal factors -- urine electrolytes c/w pre-renal azotemia - relative hypotension renal ultrasound without evidence of obstruction urine eosinophils negative urine sodium pre renal creatinine has fallen to normal value now. She is eating well. I think we can stop her IV fluids. I will sign off. (2) Hematuria: Code(s): R31.9 - Hematuria, unspecified Status: Acute Assessment and Plan: as noted by urinalysis related to infection(?) but already on antibiotics follow trend for now Repeat urine plus culture has been ordered. If hematuria persists then she will need a Urology consult at some point. (3) Sepsis: Code(s): A41.9 - Sepsis, unspecified organism Status: Acute Assessment and Plan: blood cultures with gram negative bacilli on antibiotics follow repeat cultures follow hemodynamics (4) Appendicitis with perforation: Code(s): K35.32 - Acute appendicitis with perforation and localized peritonitis, without abscess Status: Acute Assessment and Plan: as noted by admission imaging General Surgery following on IV antibiotics follow cultures (see #3) Subjective Date/time seen: 09/27/20 07:56 Interval history: The patient feels better today. Making lots of urine. Tolerating clear liquid diet. Exam Narrative: Exam Narrative: General: WD/WN female in NAD Heart: normal S1 and S2; no rub Or gallop Lungs: clear to auscultation Abdomen: soft, nontender, nondistended, positive bowel sounds Extremities: no cyanosis or clubbing; no edema Skin: no rash Objective Data Vital Signs Vital Signs: Vital Signs - 24 hr 09/26/20 08:00 09/26/20 09:20 09/26/20 12:00 Temperature Pulse Rate 98 97 75 Respiratory Rate Blood Pressure Pulse Oximetry 09/26/20 14:00 09/26/20 16:00 09/26/20 20:00 Temperature 36.9 C Pulse Rate 84 82 81 Respiratory Rate 18 18 Blood Pressure 103/63 Pulse Oximetry 95 100 09/26/20 21:16 09/27/20 00:00 09/27/20 04:00 Temperature 36.3 C L Pulse Rate 81 91 91 Respiratory Rate 18 Blood Pressure 122/63 Pulse Oximetry 100 09/27/20 05:58 Temperature 36.6 C Pulse Rate 92 Respiratory Rate 20 Blood Pressure 112/64 Pulse Oximetry 100 Intake/Output Intake/Output: Intake & Output 09/24/20 09/25/20 09/26/20 09/27/20 23:59 23:59 23:59 23:59 Intake Total 1350 3450 3730 1250 Output Total 200 1000 2800 1950 Balance 1150 2450 930 -700 Meds/Results Medications: Active Medications Generic Name Dose Route Start Last Admin Trade Name Freq PRN Reason Stop Dose Admin Acetaminophen 1,000 mg 09/25/20 22:00 09/27/20 06:41 Acetaminophen 500 Mg Tablet PO 1,000 mg Q8HR NURY Administration Famotidine 20 mg 09/24/20 21:00 09/26/20 20:44 Famotidine 20 Mg/2 Ml Vial IV PUSH 20 mg Q12HR NURY Administration Hydromorphone HCl 1 mg 09/24/20 14:02 09/27/20 05:22 Hydromorphone Hcl Inj (*Crx) 1 Mg/Ml Syr IV PUSH 1 mg Q4H PRN Administration Pain Rated 7-10 Hydromorphone HCl 0.5 mg 09/25/20 16:53 09/26/20 21:27 Hydromorphone Hcl Inj (*Crx) 1 Mg/Ml Syr IV PUSH 0.5 mg Q4H PRN Administration Pain Rated 4-6 Ertapenem 1 gm in 50 mls @ 100 mls/hr 09/25/20 09:00 09/26/20 15:15 Invanz 1 Gm/Ns 50 Ml IVPB Infused Q24H NURY Infusion Lactated Ringer's 1,000 mls @ 150 mls/hr 09/24/20 14:05 09/27/20 04:11 Lr - Lactated Ringers Iv IV CONT 150 mls/hr .Q6H40M NURY Administration Metronidazole 500 mg in 100 mls @ 100 mls/hr 09/24/20 15:45
[2020-09-27] MEDS: ERTAPENEM 1 GM/NS 50 ML 1 GM/50 ML BAG IVPB (08:13)
[2020-09-27] MEDS: METOPROLOL TARTRATE 50 MG TAB 200 MG PO (08:13)
[2020-09-27] MEDS: FAMOTIDINE 20 MG/2 ML VIAL IV PUSH (08:13)
[2020-09-27] MEDS: VENLAFAXINE HCL XR 75 MG CAP.ER.24H PO ×2 (08:15→20:44)
[2020-09-27] MEDS: MAGNESIUM OXIDE 400 MG TABLET PO (08:15)
[2020-09-27] MEDS: NICOTINE (*PBKC) 21 MG PATCH 1 PATCH TRANSDERM (08:15)
--- NOTE | 2020-09-27 10:49 | PM.PNGS ---
Progress Note: A&P Assessment and Plan (1) Appendicitis with perforation: Code(s): K35.32 - Acute appendicitis with perforation and localized peritonitis, without abscess Status: Acute Assessment and Plan: CT showed a small localized area of extraluminal gas and fluid in the expected area of the appendix, suggesting perforated acute appendicitis, and treating as such. Continue broad-spectrum IV antibiotics. Pain has improved and WBC coming down today. Pulmonary result on 1 blood culture out of to shows an anaerobe not yet identified. (Should be well covered with metronidazole IV). Will advanced to full liquid diet and per nurse to soft if pt. tolelerates it well. Encouraged increasing activity. Repeat labs tomorrow. (2) Sepsis: Code(s): A41.9 - Sepsis, unspecified organism Status: Acute Assessment and Plan: Sepsis criteria met with tachycardia and leukocytosis in the setting a known infection. Likely secondary to #1 above. Blood cultures showing gram-negative bacilli in one of two anaerobic bottles only, awaiting final results. Continue IV ertapenem/metronidazole. WBC continues to trend down. Trend labs. (3) Acute renal failure (ARF): Code(s): N17.9 - Acute kidney failure, unspecified Status: Acute Assessment and Plan: Creatinine improving down to 0.8 today. S/p right nephrectomy 10 years ago. Appreciate Nephrology's help. (4) Hematuria: Code(s): R31.9 - Hematuria, unspecified Status: Acute Assessment and Plan: Straight cath urinalysis showed much less RBCs (3-5), negative nitrate, negative leukocytes, 2+ blood, 1+ protein, urinobilinogen 4. Does not appear to be a urinary tract infection based on urinalysis, although she is on IV antibiotics. Unclear why she was having hematuria. Appreciate Nephrology consultation. Additional Plan Encouraged increased activity with walking in the [place]. Encouraged patient to take insure surgery twice a day to increase her nutrition (ease pre-albumin only for this morning) Will start on Metamucil to help solidify stools. Subjective Subjective Date/Time Seen: 09/27/20 10:50 Patient reports: flatus and bowel movement ( One after a suppository and another spontaneous last night.) Interval history: Patient is seen lying in bed this date. She is wide awake and alert. She was able to answer questions well today. She states she did have Jell-O and and Ensure for breakfast. Still does not have much appetite. I told her that her pre-albumin came back very low see report. She needs to grasp try to increase her dietary intake. Kidneys have recovered and Nephrology has sign off her case since her BUN creatinine her back to baseline. She states she has no abdominal pain for not pushing. Some pain with compression or examination of the abdomen. Review of Systems Review of Systems: All systems reviewed & are unremarkable except as noted in HPI and below Constitutional: Constitutional: Reports as per HPI, Reports no additional constitutional complaints, Denies chills, Denies fatigue and Denies fever(s) Eyes: Eyes: Reports no additional eye complaints and Denies change in vision ENT: Reports system reviewed and no additional complaints, except as documented and Denies dizziness Cardiovascular: Cardiovascular: Reports no additional cardiovascular complaints, Denies chest pain, Denies leg edema and Denies dyspnea Respiratory: Respiratory: Reports no additional respiratory complaints, Denies cough and Denies dyspnea Gastrointestinal: Gastrointestinal: Reports as per HPI, Reports no additional gastrointestinal complaints, Reports abdominal pain ( Reporting some to the nurses, ) and Reports loose stools Comments: this far as abdominal pain however the patient tells me that she is not having pain and less the abdomen is pushed on. Genitourinary: Genitourinary: Denies hematuria and Denies dysuria Musculoskeletal: Musculoskeleta
[2020-09-27] MEDS: POTASSIUM CHLORIDE 20 MEQ TABLET.ER PO (12:45)
[2020-09-27] MEDS: PSYLLIUM POWDER PACKET 1 PACKET PO (12:46)
[2020-09-27] MEDS: HYDROcodone/acetaminophen (*CRX) 5-325 MG TABLET 1 TAB PO (12:46)
[2020-09-27] MEDS: FAMOTIDINE 20 MG TABLET PO (20:44)
[2020-09-27] MEDS: HYDROcodone/acetaminophen (*CRX) 7.5-325 MG TABLET 1 TAB PO (23:43)
[2020-09-27] MEDS: ALPRAZolam (*CRX) 0.5 MG TABLET PO (23:45)
[2020-09-28] MEDS: ACETAMINOPHEN 500 MG TABLET 1000 MG PO (05:19)
[2020-09-28] MEDS: metroNIDAZOLE 500 MG/ISO 100ML 500 MG/100 ML BAG 100 MG IVPB ×3 (05:20→21:26)
[2020-09-28 05:36] VITALS: BP 133/73; PULSE 85; RESP 16; TEMP 36.8; O2SAT 98
[2020-09-28 05:54] LABS: Basophils Absolute Auto 0.1 K/mm3 (0.0-0.1); Basophils Percent Auto 0.3 % (0.2-1.2); Eosinophils Absolute Auto 0.3 K/mm3 (0-0.3); Eosinophils Percent Auto 1.8 % (0-4.4); Hematocrit 35.7 % (37.0-47.0); Hemoglobin 11.1 g/dL (12.0-15.0); Immature Granulocyte Absolute 0.25 K/mm3 (0.00-0.031); Immature Granulocyte Percent A 1.4 % (0-0.5); Lymphocytes Absolute Auto 2.45 K/mm3 (0.9-3.2); Lymphocytes Percent Auto 14.1 % (18.3-44.2); Mean Corpuscular HGB Conc 31.1 g/dl (32-36); Mean Corpuscular Volume 89.9 fl (80-100); Mean Platelet Volume 9.9 fl (7.4-10.4); Monocytes Absolute Auto 0.9 K/mm3 (0.1-0.6); Monocytes Percent Auto 4.9 % (2.6-8.5); Neutrophils Absolute Auto 13.4 K/mm3 (1.3-6.7); Neutrophils Percent Auto 77.5 % (45.5-73.1); Platelet Count Result 382 k/mm3 (150-375); Red Blood Count 3.97 M/mm3 (4.2-5.4); Red Cell Distribution Width 15.2 % (11.5-14.5); White Blood Count 17.4 K/mm3 (4.5-10.0)
[2020-09-28 05:58] LABS: Alanine Aminotransferase 14 U/L (4-35); Albumin Level 3.1 g/dL (3.5-5.1); Alkaline Phosphatase 126 U/L (38-126); Anion Gap 8 mmol/L (8-16); Aspartate Amino Transferase 33 U/L (14-36); Bilirubin,Total 0.2 mg/dL (0.2-1.3); Blood Urea Nitrogen 11 mg/dL (7-17); Calcium 8.6 mg/dL (8.4-10.2); Carbon Dioxide 24 mmol/L (22-30); Chloride 108 mmol/L (98-107); Estimated CRCL calculation 69 ml/min; Estimated Glomerular Filt Rate 58; Glucose 95 mg/dL (65-105); Magnesium 2.2 mg/dL (1.6-2.3); Potassium 3.2 mmol/L (3.4-5.0); Sodium 140 mmol/L (137-145)
[2020-09-28] MEDS: ERTAPENEM 1 GM/NS 50 ML 1 GM/50 ML BAG IVPB (09:05)
[2020-09-28] MEDS: MAGNESIUM OXIDE 400 MG TABLET PO (09:05)
[2020-09-28] MEDS: FAMOTIDINE 20 MG TABLET PO ×2 (09:05→21:26)
[2020-09-28] MEDS: PSYLLIUM POWDER PACKET 1 PACKET PO (09:05)
[2020-09-28] MEDS: POTASSIUM CHLORIDE 20 MEQ TABLET.ER PO ×2 (09:05→17:04)
[2020-09-28 09:06] VITALS: PULSE 82
[2020-09-28] MEDS: VENLAFAXINE HCL XR 75 MG CAP.ER.24H PO ×2 (09:06→21:26)
[2020-09-28] MEDS: METOPROLOL TARTRATE 50 MG TAB 200 MG PO (09:06)
[2020-09-28] MEDS: NICOTINE (*PBKC) 21 MG PATCH 1 PATCH TRANSDERM (09:07)
[2020-09-28] MEDS: HYDROcodone/acetaminophen (*CRX) 7.5-325 MG TABLET 1 TAB PO ×3 (09:09→23:34)
[2020-09-28] MEDS: TOPIRAMATE 100 MG TABLET PO ×3 (09:09→23:34)
--- NOTE | 2020-09-28 11:26 | PM.PNGS ---
Progress Note: A&P Assessment and Plan (1) Appendicitis with perforation: Code(s): K35.32 - Acute appendicitis with perforation and localized peritonitis, without abscess Status: Acute Assessment and Plan: CT showed a small localized area of extraluminal gas and fluid in the expected area of the appendix, suggesting perforated acute appendicitis, and treating as such. Continue broad-spectrum IV antibiotics. Pain has improved and WBC back up to 17,000 today. Preliminary result on 1 blood culture out of two shows an anaerobe identified as Bacteroides species not Bacteroides fragilis. Text indicates that this should be sensitive to most beta lactams and patient is on Invanz. (Should be well covered with metronidazole IV also). Signs of sepsis except for slightly elevated white count are resolved. Patient is now been tolerating a soft diet low residue for several days Encouraged increasing activity. Repeat labs tomorrow. Will also repeat CT scan of the abdomen and pelvis tomorrow looking for possible abscess. (2) Sepsis: Code(s): A41.9 - Sepsis, unspecified organism Status: Acute Assessment and Plan: Sepsis criteria met with tachycardia and leukocytosis on admission, (now which is improved as far as the tachycardia and just today white cell count starting to go up again). This is likely secondary to #1 above. Blood cultures showing gram-negative bacilli in one of two anaerobic bottles final results show a Bacteroides species. Continue IV ertapenem/metronidazole. WBC continues to trend down. Trend labs. (3) Acute renal failure (ARF): Code(s): N17.9 - Acute kidney failure, unspecified Status: Acute Assessment and Plan: Creatinine improving down to 0.8 today. S/p right nephrectomy 10 years ago. Appreciate Nephrology's help. (4) Hematuria: Code(s): R31.9 - Hematuria, unspecified Status: Acute Assessment and Plan: Straight cath urinalysis showed much less RBCs (3-5), negative nitrate, negative leukocytes, 2+ blood, 1+ protein, urinobilinogen 4. Does not appear to be a urinary tract infection based on urinalysis, although she is on IV antibiotics. Unclear why she was having hematuria. Appreciate Nephrology consultation. Apparently someone ordered a clean-catch specimen for urinalysis/urine culture on 09/27 that is still pending. Additional Plan Encouraged increased activity with walking in the [place]. Encouraged patient to take Ensure surgery twice a day to increase her nutrition ( pre-albumin only 4.2 on09/27) Will start on Metamucil to help solidify stools. Discussed changing pain medication regimen with the patient. Will try to go to scheduled Q 6 our [place] 7.5/325 with the possibility of using ketorolac IV in between doses of that. Will see if we can get her abdominal pain under better control. Apparently this was part of the reason that she was considering leaving AMA last night. The nurses did a good job of talking her out of leaving and not being on antibiotics. Subjective Subjective Date/Time Seen: 09/28/20 11:26 Patient lying in bed when I entered the room. She is awake and alert. She states that she ate a 3A omelet for breakfast. She has not had a bowel movement 24 hours. She has complained of increased abdominal pain today compared to yesterday. She describes it as a crampy pain throughout the mid abdomen. Review of Systems Review of Systems: All systems reviewed & are unremarkable except as noted in HPI and below Constitutional: Constitutional: Reports as per HPI, Reports no additional constitutional complaints, Denies chills, Denies fatigue and Denies fever(s) Eyes: Eyes: Reports no additional eye complaints and Denies change in vision ENT: Reports system reviewed and no additional complaints, except as documented and Denies dizziness Cardiovascular: Cardiovascular: Reports no additional cardiovascular complaints, Denies chest pain, Denies leg edema
[2020-09-28] MEDS: KETOROLAC 30 MG/ML VIAL (*BKC) IV PUSH (13:42)
[2020-09-28] MEDS: polyethylene glycoL 3350 17 GM POWD.PACK PO (13:42)
[2020-09-28 14:00] VITALS: BP 101/49; PULSE 62; RESP 18; TEMP 36.7; O2SAT 99
[2020-09-28 22:00] VITALS: BP 116/64; PULSE 74; RESP 14; TEMP 36.7; O2SAT 99
[2020-09-28] MEDS: ALPRAZolam (*CRX) 0.5 MG TABLET PO (23:34)
[2020-09-29] MEDS: ONDANSETRON INJ 4 MG/2 ML VIAL IV PUSH (00:28)
[2020-09-29 05:44] LABS: Basophils Absolute Auto 0.1 K/mm3 (0.0-0.1); Basophils Percent Auto 0.7 % (0.2-1.2); Eosinophils Absolute Auto 0.5 K/mm3 (0-0.3); Eosinophils Percent Auto 3.1 % (0-4.4); Hematocrit 35.8 % (37.0-47.0); Hemoglobin 11.4 g/dL (12.0-15.0); Immature Granulocyte Absolute 0.74 K/mm3 (0.00-0.031); Immature Granulocyte Percent A 4.5 % (0-0.5); Lymphocytes Absolute Auto 2.92 K/mm3 (0.9-3.2); Lymphocytes Percent Auto 17.8 % (18.3-44.2); Mean Corpuscular HGB Conc 31.8 g/dl (32-36); Mean Corpuscular Hemoglobin 28.5 pg (26-34); Mean Corpuscular Volume 89.5 fl (80-100); Mean Platelet Volume 9.8 fl (7.4-10.4); Monocytes Absolute Auto 1.1 K/mm3 (0.1-0.6); Monocytes Percent Auto 6.8 % (2.6-8.5); Neutrophils Percent Auto 67.1 % (45.5-73.1); Nucleated Red Blood Cells Perc 0.1 % (0.0-0.2); Platelet Count Result 433 k/mm3 (150-375); Red Cell Distribution Width 15.5 % (11.5-14.5); White Blood Count 16.4 K/mm3 (4.5-10.0)
[2020-09-29] MEDS: metroNIDAZOLE 500 MG/ISO 100ML 500 MG/100 ML BAG 100 MG IVPB ×3 (05:46→21:22)
[2020-09-29] MEDS: HYDROcodone/acetaminophen (*CRX) 7.5-325 MG TABLET 1 TAB PO ×3 (05:46→23:58)
[2020-09-29 05:59] LABS: Lactic Acid Reflex 0.9 mmol/L (0.7-2.1)
[2020-09-29 06:00] VITALS: BP 149/71; PULSE 83; RESP 20; TEMP 36.7; O2SAT 98
[2020-09-29] MEDS: KETOROLAC 30 MG/ML VIAL (*BKC) IV PUSH ×2 (06:03→16:37)
[2020-09-29 06:05] LABS: Anion Gap 9 mmol/L (8-16); Blood Urea Nitrogen 16 mg/dL (7-17); Calcium 8.7 mg/dL (8.4-10.2); Carbon Dioxide 24 mmol/L (22-30); Chloride 105 mmol/L (98-107); Estimated CRCL calculation 69 ml/min; Estimated Glomerular Filt Rate 58; Glucose 95 mg/dL (65-105); Potassium 3.4 mmol/L (3.4-5.0); Sodium 138 mmol/L (137-145)
[2020-09-29] MEDS: NICOTINE (*PBKC) 21 MG PATCH 1 PATCH TRANSDERM (09:57)
[2020-09-29] MEDS: ENOXAPARIN 40 MG/0.4 ML SYRINGE SUB-Q (09:57)
[2020-09-29] MEDS: ERTAPENEM 1 GM/NS 50 ML 1 GM/50 ML BAG IVPB (09:58)
[2020-09-29 14:00] VITALS: BP 136/75; PULSE 82; RESP 16; TEMP 36.4; O2SAT 99
--- NOTE | 2020-09-29 16:33 | PM.PNGS ---
Progress Note: A&P Assessment and Plan (1) Intra-abdominal abscess: Onset Date: ~09/29/20 Code(s): K65.1 - Peritoneal abscess Status: Acute Assessment and Plan: This was discovered on CT scan of the abdomen and pelvis with oral and IV contrast today. It appears that there fluid collections in front of and behind the pelvis/uterus slightly inferior to where the appendix perforated. There is still no obvious appendix in the area where it should be. CT was reviewed with Dr. Camejo and he will be available to possibly place a CT-guided drain tomorrow. Will send fluid for cultures at that time but continue on current antibiotics until sensitivities return. Did discuss with the patient the alternative would be exploratory laparotomy with drainage of the abscesses and remove the appendix which would be a much bigger procedure in [facility] much more significantly. Again asked her about her previous colonoscopy she has only had 1 in the past and she cannot remember what age she was or what the findings were. She believes the doctor Gabriela did do it here at [facility]. (2) Appendicitis with perforation: Code(s): K35.32 - Acute appendicitis with perforation and localized peritonitis, without abscess Status: Acute Assessment and Plan: CT showed a small localized area of extraluminal gas and fluid in the expected area of the appendix, suggesting perforated acute appendicitis, and treating as such. Continue broad-spectrum IV antibiotics. Pain has improved and WBC down to 16,400 today. Preliminary result on 1 blood culture out of two shows an anaerobe identified as Bacteroides species not Bacteroides fragilis. Text indicates that this should be sensitive to most beta lactams and patient is on Invanz. (Should be well covered with metronidazole IV also). Signs of sepsis except for slightly elevated white count are resolved. Patient is now been tolerating a soft diet low residue for several days Encouraged increasing activity. Repeat labs tomorrow. Will also set her up for CT guided drainage of the developing abscesses of the pelvis tomorrow with interventional Radiology. (3) Sepsis: Code(s): A41.9 - Sepsis, unspecified organism Status: Acute Assessment and Plan: Sepsis criteria met with tachycardia and leukocytosis on admission, (now this is improved as far as the tachycardia and just yesterday the white cell count was starting to go up again). This is likely secondary to #1 above. Blood cultures showing gram-negative bacilli in one of two anaerobic bottles final results show a Bacteroides species. Continue IV ertapenem/metronidazole. WBC continues to trend down. Trend labs. (4) Tobacco abuse: Code(s): Z72.0 - Tobacco use Status: Acute Assessment and Plan: Patient apparently doing okay without the nicotine patch. Subjective Subjective Date/Time Seen: 09/29/20 15 :33 I saw patient once this morning and explained that her white count was down a little bit but I still thought she needed a CT scan. I then returned to talk to her at this time explained that there is a intra-abdominal abscess done her pelvis on each side of the uterus somewhat inferior to where her appendix ruptured. She will do significantly better if she allows us to proceed with a CT-guided abscess drainage of the pelvic abscess. Hopefully this will allow her to go home on oral antibiotics for 7-10 days. It will depend on how early gets done tomorrow whether I should be able to go home. Will let her resume her diet since she feels okay right now but NPO at midnight except for ice chips and sips of water sips of water with meds in order to prepare for the possible CT-guided drainage tomorrow. Will get cultures and then subsequently adjust antibiotics as seems to be needed. Review of Systems Review of Systems: All systems reviewed & are unremarkable except as noted in HPI and below Constitutional: Constitut
[2020-09-29] MEDS: POTASSIUM CHLORIDE 20 MEQ TABLET.ER PO (16:36)
[2020-09-29] MEDS: TOPIRAMATE 100 MG TABLET PO ×2 (16:37→23:58)
[2020-09-29] MEDS: VENLAFAXINE HCL XR 75 MG CAP.ER.24H PO (21:18)
[2020-09-29] MEDS: FAMOTIDINE 20 MG TABLET PO (21:18)
[2020-09-29 22:00] VITALS: BP 146/78; PULSE 90; RESP 18; TEMP 36.6; O2SAT 96
[2020-09-30] MEDS: KETOROLAC 30 MG/ML VIAL (*BKC) IV PUSH (03:03)
[2020-09-30 05:47] LABS: Basophils Absolute Auto 0.1 K/mm3 (0.0-0.1); Basophils Percent Auto 0.5 % (0.2-1.2); Eosinophils Absolute Auto 0.4 K/mm3 (0-0.3); Eosinophils Percent Auto 3.1 % (0-4.4); Hematocrit 32.6 % (37.0-47.0); Hemoglobin 10.5 g/dL (12.0-15.0); Immature Granulocyte Absolute 0.53 K/mm3 (0.00-0.031); Immature Granulocyte Percent A 3.7 % (0-0.5); Lymphocytes Absolute Auto 2.39 K/mm3 (0.9-3.2); Lymphocytes Percent Auto 16.7 % (18.3-44.2); Mean Corpuscular HGB Conc 32.2 g/dl (32-36); Mean Corpuscular Hemoglobin 28.4 pg (26-34); Mean Corpuscular Volume 88.1 fl (80-100); Mean Platelet Volume 9.4 fl (7.4-10.4); Monocytes Percent Auto 6.8 % (2.6-8.5); Neutrophils Absolute Auto 9.9 K/mm3 (1.3-6.7); Neutrophils Percent Auto 69.2 % (45.5-73.1); Platelet Count Result 457 k/mm3 (150-375); Red Cell Distribution Width 15.1 % (11.5-14.5); White Blood Count 14.3 K/mm3 (4.5-10.0)
[2020-09-30] MEDS: metroNIDAZOLE 500 MG/ISO 100ML 500 MG/100 ML BAG 100 MG IVPB ×3 (05:59→20:34)
[2020-09-30] MEDS: HYDROcodone/acetaminophen (*CRX) 7.5-325 MG TABLET 1 TAB PO ×4 (05:59→23:07)
[2020-09-30 06:00] VITALS: BP 150/80; PULSE 86; RESP 16; TEMP 36.6; O2SAT 97
[2020-09-30 08:29] VITALS: PULSE 86
[2020-09-30] MEDS: VENLAFAXINE HCL XR 75 MG CAP.ER.24H PO ×2 (08:29→20:34)
[2020-09-30] MEDS: NICOTINE (*PBKC) 21 MG PATCH 1 PATCH TRANSDERM (08:29)
[2020-09-30] MEDS: METOPROLOL TARTRATE 50 MG TAB 200 MG PO (08:29)
[2020-09-30] MEDS: MAGNESIUM OXIDE 400 MG TABLET PO (08:30)
[2020-09-30] MEDS: POTASSIUM CHLORIDE 20 MEQ TABLET.ER PO ×2 (08:30→16:51)
[2020-09-30] MEDS: FAMOTIDINE 20 MG TABLET PO ×2 (08:30→20:34)
[2020-09-30] MEDS: TOPIRAMATE 100 MG TABLET PO ×3 (08:31→23:07)
[2020-09-30] MEDS: ERTAPENEM 1 GM/NS 50 ML 1 GM/50 ML BAG IVPB (08:42)
--- NOTE | 2020-09-30 12:25 | PM.PNGS ---
Progress Note: A&P Assessment and Plan (1) Intra-abdominal abscess: Onset Date: ~09/29/20 Code(s): K65.1 - Peritoneal abscess Status: Acute Assessment and Plan: Found on repeat CT scan abd/pelvis yesterday. Plan was for CT-guided drainage of the abscess today, but apparently one of the CT scans is down and they are no longer able to do the procedure until tomorrow when both CT scans will be running. Patient is wanting to leave AMA due to this. I have discussed the importance of staying and having the drainage procedure and continuing IV abx until then. Dr. Smalls will be speaking to the patient as well later today. Our recommendations remain that she stay on IV abx as an inpatient and have the CT-guided drainage procedure tomorrow as planned. (2) Appendicitis with perforation: Code(s): K35.32 - Acute appendicitis with perforation and localized peritonitis, without abscess Status: Acute Assessment and Plan: CT showed a small localized area of extraluminal gas and fluid in the expected area of the appendix, suggesting perforated acute appendicitis, and treating as such. Continue IV abx and plan as mentioned above. WBC down today. Final blood cultures showed Bacteroides species, not fragilis, in anaerobic bottle only. Will allow patient to have a low residue diet today and make NPO after midnight in plans for the procedure tomorrow. Encouraged to continue walking the halls and up for meals. Repeat labs tomorrow. (3) Sepsis: Code(s): A41.9 - Sepsis, unspecified organism Status: Acute Assessment and Plan: Sepsis criteria met with tachycardia and leukocytosis on admission, (now this has improved as far as the tachycardia and just yesterday the WBC trending down). This is likely secondary to #1 above. Blood cultures showing growth of Bacteroides species in anaerobic bottle only. Continue IV ertapenem/metronidazole. (4) Tobacco abuse: Code(s): Z72.0 - Tobacco use Status: Acute Additional Plan I have discussed the patient's case and plan of care with Dr. Smalls. Subjective Subjective Date/Time Seen: 09/30/20 12:25 Patient reports: no new complaints, feels better, pain is less, bowel movement (x 2 today) and afebrile Interval history: Patient seen today and reports abdominal pain continues to slowly improve. No nausea or vomiting. No other complaints at this time. Review of Systems Review of Systems: All systems reviewed & are unremarkable except as noted in HPI and below Constitutional: Constitutional: Denies chills and Denies fever(s) Exam Const: General: comfortable, no acute distress, alert and awake Orientation/consciousness: patient oriented x3 Resp: Effort & Inspection: no respiratory distress Auscultation: clear to auscultation bilaterally Cardio: Rate: regular rate Rhythm: regular rhythm GI: Inspection: obesity GI Palp: Yes Soft to palpation (fullness in lower abdomen), Yes Tenderness to palpation present (GI) (throughout, worse in RLQ), Yes Guarding due to palpation present (GI) and No Rebound tenderness present Auscultation: normal bowel sounds Skin: General skin exam: normal color Neuro: General: moves all extremities and no focal motor deficits Extrem: General: no clubbing, cyanosis or edema and no calf tenderness Psych: Insight: Fair insight present (Psych) Judgement: Fair judgement present (Psych) Objective Data Vital Signs Vital Signs: Vital Signs - 24 hr 09/29/20 14:00 09/29/20 22:00 09/30/20 06:00 Temperature 97.6 F 97.8 F 97.8 F Pulse Rate 82 90 86 Respiratory Rate 16 18 16 Blood Pressure 136/75 146/78 H 150/80 H Pulse Oximetry 99 96 97 09/30/20 08:29 Temperature Pulse Rate 86 Respiratory Rate Blood Pressure Pulse Oximetry Intake/Output Intake/Output: Intake & Output 09/27/20 09/28/20 09/29/20 09/30/20 23:59 23:59 23:59 23:59 Intake Total 4470 1330 1050 650 Output Total 4450 1500 500 900
[2020-09-30 14:00] VITALS: BP 120/68; PULSE 74; RESP 16; TEMP 36.8; O2SAT 98
[2020-09-30 15:38] LABS: Chloride Rand Ur 22 mmol/L (32-290); Chloride/Creatinine Rand Ur 34 (38-318); Creatinine Random Urine 64 mg/dL (20-275)
[2020-09-30 19:52] VITALS: BP 113/75; PULSE 82; RESP 16; TEMP 36.9; O2SAT 96
[2020-09-30 20:00] VITALS: PULSE 82; RESP 16; O2SAT 96
[2020-10-01 02:59] VITALS: BP 132/67; PULSE 78; RESP 18; TEMP 36.4; O2SAT 98
[2020-10-01] MEDS: KETOROLAC 30 MG/ML VIAL (*BKC) IV PUSH (03:02)
--- NOTE | 2020-10-01 03:04 | PC.NURSE ---
Pt called me into room states she is not feeling good having lower abd. pain with urinating and pain going down Rt leg. Temp 97.6 , 132/67 pulse 78, skin warm and dry Toradol IVP given, and ice pack to lower abd..
[2020-10-01 05:55] LABS: INR 1.2; Prothrombin Time 16.2 Seconds (11.1-14.7)
[2020-10-01 06:00] VITALS: BP 132/63; PULSE 81; RESP 16; TEMP 35.9; O2SAT 96
[2020-10-01] MEDS: HYDROcodone/acetaminophen (*CRX) 7.5-325 MG TABLET 1 TAB PO ×2 (06:19→12:04)
[2020-10-01 06:20] VITALS: PULSE 80
[2020-10-01] MEDS: metroNIDAZOLE 500 MG/ISO 100ML 500 MG/100 ML BAG 100 MG IVPB (06:20)
[2020-10-01] MEDS: METOPROLOL TARTRATE 50 MG TAB 200 MG PO (06:20)
[2020-10-01] MEDS: VENLAFAXINE HCL XR 75 MG CAP.ER.24H PO (08:03)
[2020-10-01] MEDS: POTASSIUM CHLORIDE 20 MEQ TABLET.ER PO (08:03)
[2020-10-01] MEDS: NICOTINE (*PBKC) 21 MG PATCH 1 PATCH TRANSDERM (08:03)
[2020-10-01] MEDS: FAMOTIDINE 20 MG TABLET PO (08:03)
[2020-10-01] MEDS: MAGNESIUM OXIDE 400 MG TABLET PO (08:03)
[2020-10-01] MEDS: ERTAPENEM 1 GM/NS 50 ML 1 GM/50 ML BAG IVPB (08:04)
[2020-10-01] MEDS: TOPIRAMATE 100 MG TABLET PO (08:04)
[2020-10-01 08:07] VITALS: BMI 39.0
[2020-10-01 08:12] VITALS: BMI 39.1
--- NOTE | 2020-10-01 12:18 | PC.NURSE ---
Patient to CT per bed for drain placement procedure.
--- NOTE | 2020-10-01 12:43 | WPDANESEPPF ---
Anes - Initial Pre Proc Eval Procedure: Operation Date: 10/01/20 12:30 Proposed Procedures p Post Procedure Recovery- Placement Pelvic Drain - Riley Brady MD Date/Time: 10/01/20 12:43 Surgeon: Candelario Smalls MD Pre Op Diagnosis: perforated appendicitis Patient Data Age: 55 Gender: F Height: 1.7 m Weight: 113.4 kg Last Vital Signs Temp 35.9 C L 10/01/20 06:00 Pulse 80 10/01/20 06:20 Resp 16 10/01/20 06:00 BP 132/63 10/01/20 06:00 Pulse Ox 96 10/01/20 06:00 Allergies Allergy/AdvReac Type Severity Reaction Status Date / Time Penicillins Allergy Unknown Rash Verified 09/24/20 15:49 Home Medications Medication Instructions Recorded Confirmed Type alprazolam 1 mg PO QID PRN 09/24/20 09/24/20 History hydrocodone-acetaminophen 1 tablet PO QID PRN 09/24/20 09/24/20 History metoprolol tartrate 200 mg PO DAILY 09/24/20 09/24/20 History topiramate 100 mg PO Q8H 09/24/20 09/24/20 History venlafaxine 75 mg PO BID 09/24/20 09/24/20 History Laboratory Tests 09/26/20 10/01/20 01:01 05:17 PT 16.2 Seconds H Seconds (11.1-14.7) INR 1.2 Ur Random Creatinine 64 mg/dL mg/dL (20-275) Ur Random Chloride 22 mmol/L L mmol/L (32-290) U Random Chloride/Creat 34 L (38-318) Patient hx anesthesia problems: none Family hx anesthesia problems: none [facility] Past Medical History Medical History (Updated 09/29/20 @ 16:40 by Candelario Smalls MD) Anxiety Chronic pain Depression History of hypertension History of supraventricular tachycardia History of SVT and hypertension, which she takes metoprolol for now. Migraines Peripheral neuropathy Tobacco abuse Surgical History Surgical History (Updated 09/24/20 @ 15:16 by LISA Calrton) History of esophagogastroduodenoscopy (EGD) EGD with dilatation of an esophageal stricture in 2010. History of right nephrectomy History of tubal ligation Family History Family History Other No pertinent family history Social History Social History Social History: The patient lives at home with her daughter. She wishes to be a full code. She does not have a durable healthcare power of procurement technician, but wishes that her daughter would make decisions for her if she became unable to do so. Smoking packs per day: 1 Smoking cigarettes per day: 20.0 Years smoked: 37 Smoking pack-years: 37.00 Smoking status: Current every day smoker Alcohol intake: never Substance use: never Living arrangements: with family Occupation/Education: other Additional occupation/education comments: On disability Gender identity (if verbalized by the patient): Female Spiritual care concerns: No Anes - Eval Final PreProcedure Day of Procedure 10/01/20 12:43 Patient weight: obese Heart: regular rate and rhythm Lungs: clear to auscultation and normal air movement Airway: Mallampati scale class II Neurological: alert and oriented Last oral intake: >/= 8 hours ASA classification: IV Emergent: no Anesthetic plan: proceed Anesthesia type and monitoring: monitored anesthesia care and standard monitoring Informed Consent: The patient's anesthetic plan and its attendant risks and benefits were discussed with the patient/family/POA. Questions were solicited and answers provided to the satisfaction of the patient/family/POA.
[2020-10-01 14:00] VITALS: BP 131/75; PULSE 76; RESP 18; TEMP 35.6; O2SAT 97
--- NOTE | 2020-10-01 14:46 | PM.DS ---
DS: Admitting Diagnosis Admitting Diagnosis Admitting Diagnosis: Acute Perforated appendicitis Sepsis Tobacco abuse Hematuria Acute renal failure Obesity BMI 39 DS: Discharge Diagnosis Discharge Diagnosis (1) Intra-abdominal abscess: Onset Date: ~09/29/20 Code(s): K65.1 - Peritoneal abscess Status: Acute Assessment and Plan: Found on repeat CT scan abd/pelvis on 09/29/20. CT-guided percutaneous abscess drainage x 3 on 10/01/20 in Radiology with sedation. Continue abx and plan as mentioned below in summary. (2) Appendicitis with perforation: Code(s): K35.32 - Acute appendicitis with perforation and localized peritonitis, without abscess Status: Acute Assessment and Plan: Initial CT scan abd/pelvis in the ER on 09/24 showed a small localized area of extraluminal gas and fluid in the expected area of the appendix, suggesting perforated acute appendicitis. See summary for further information. (3) Sepsis: Code(s): A41.9 - Sepsis, unspecified organism Status: Acute Assessment and Plan: Sepsis criteria met on admission with tachycardia and leukocytosis in the presence of known infection. Likely secondary to perforated acute appendicitis. Blood cultures drawn and had growth of Bacteroides species, not B. fragilis, in anaerobic bottle only. She was treated with IV Ertapenem and IV metronidazole for 8 days. Initially she was tachycardic, which resolved with IV fluid resuscitation and IV antibiotics. Dr. Smalls recommending another 8 days of oral antibiotics with follow-up at the end of that course. (4) Tobacco abuse: Code(s): Z72.0 - Tobacco use Status: Acute Assessment and Plan: Nicotine patch used while inpatient. She did well with this. We discussed the importance of cessation and the affects this can have on her current infection and long-term as well. (5) Acute renal failure (ARF): Code(s): N17.9 - Acute kidney failure, unspecified Status: Acute (6) Hematuria: Code(s): R31.9 - Hematuria, unspecified Status: Acute Assessment and Plan: Urinalysis x 2 with RBCs (first one was clean catch and had a significant amount of RBCs, second was a straight cath with less). Due to her history, we recommended f/u with PCP to recheck urine and for any further workup needed. (7) Migraines: Code(s): G43.909 - Migraine, unspecified, not intractable, without status migrainosus Status: Acute Assessment and Plan: No issues during hospitalization. Stable. Continue topiramate on discharge and f/u with PCP with any issues. (8) Anxiety and depression: Code(s): F41.9 - Anxiety disorder, unspecified; F32.9 - Major depressive disorder, single episode, unspecified Status: Acute Assessment and Plan: Stable. No acute issues during hospitalization. Continue home medications. F/u with PCP. (9) Obesity (BMI 30-39.9): Code(s): E66.9 - Obesity, unspecified Status: Acute Assessment and Plan: Encouraged low fat diet and lifestyle modifications to promote weight loss. F/u with PCP. DS: Summary Hospital Course Reason for hospitalization: This is a 54-year-old female with a history of tachyarrhythmias, migraines, tobacco abuse, and kidney cancer status post right nephrectomy 10 years ago. She presented to the ER on 09/24/20 for evaluation of abdominal pain, vomiting, and diarrhea. She had symptoms of nausea and vomiting after her grandson had similar symptoms the week prior, and she associated this with his illness. These symptoms improved and she developed lower abdominal pain. This pain persisted x 3 days prior to presenting to the ER. In the ED, CT scan of the abdomen and pelvis showed abnormal extraluminal fluid and gas in the expected location of the appendix, suspicious for perforated appendicitis. Labs showed a white blood cell count of 22,000, lactic acid 1.6, sodium 134, BUN 19, and creatinine 1.8. In the
--- NOTE | 2020-10-01 15:49 | PC.NURSE ---
Pt return from CT by bed at 1535 10/01/20.
== END 2020-10-01 17:05 | disposition home or self-care (01) | DRG 871 ==
LOC: ANHED 13:56 → ANH2MED 15:29
PROVIDERS: Emergency Medicine Emergency Medical Services; Internal Medicine Nephrology; Nurse Practitioner Family; Radiology Diagnostic Radiology; Admitting Provider Surgery; Emergency Provider Emergency Medicine; PCP Internal Medicine; Visit Provider Surgery
DX: A41.9 Sepsis, unspecified organism (principal); K35.33 Acute appendicitis with perforation, localized peritonitis, and gangrene, with abscess; N17.9 Acute kidney failure, unspecified; F17.210 Nicotine dependence, cigarettes, uncomplicated; G43.909 Migraine, unspecified, not intractable, without status migrainosus; G62.9 Polyneuropathy, unspecified; F41.9 Anxiety disorder, unspecified; F32.9 Major depressive disorder, single episode, unspecified; E86.0 Dehydration; R31.9 Hematuria, unspecified; E83.42 Hypomagnesemia; I10 Essential (primary) hypertension; E66.9 Obesity, unspecified; Z68.39 Body mass index [BMI] 39.0-39.9, adult; Z85.528 Personal history of other malignant neoplasm of kidney; Z90.5 Acquired absence of kidney
CPT/HCPCS: 36415; 51701; 74176; 74177; 75989; 76775; 80048; 80053; 80069; 81001; 81025; 82436; 82570; 83605; 83690; 83735; 84134; 84156; 84300; 85025; 85610; 85999; 87040; 87070; 87075; 87076; 87077; 87086; 87185; 87205; 93005; 96361; 96365; 96366; 96367; 96375; 96376; 99285; A9270; C1729; C1769; C9113; G0378; J0131; J1170; J1335; J1650; J1885; J2250; J2270; J2405; J3010; J7030; J7120; Q9967

== ENCOUNTER 2020-10-08 08:10 | Outpatient (CLI) | payer MEDICARE, MEDICAID, SELFPAY ==
--- NOTE | ~2020-10-08 | CT_ITS ---
EXAMINATION: CT abdomen pelvis w con DATE: 10/08/2020 09:02 INDICATION: Acute appendicitis with perforation and localized peritonitis TECHNIQUE: Computed tomography (CT) of the abdomen and pelvis was performed with 100 cc Omnipaque 350 intravenous contrast. The dose-length product was 1280.20 mGy-cm. Automated exposure control and ite rative reconstruction technique were employed. COMPARISON: CT dated 09/29/2020. FINDINGS: There are 3 date drainage catheters in the pelvis along the right and left pelvis and along the midline. The abscess at the midline has diminished in size on axial images measuring 9.4 x 8.5 c m on prior examination now measuring 6.1 x 1.7 cm on current study. The fluid collection in the left pelvis with associated drainage catheter is decreased in size, although it has a bilobed appearance a nd is difficult to make exact measurements. The fluid and gas collection in the right pelvis is appro ximately the same size measuring 4.8 x 3.8 cm and contains a probable appendicolith. The drainage cat heter resides along the inferior margin of the fluid. There is persistent surrounding phlegmonous venice nge. Lung bases are unremarkable. Heart size is normal. No significant pleural or pericardial effusion. Th ere is mild atherosclerosis. No lymphadenopathy. Nonobstructive bowel gas pattern. Fatty infiltration of the liver. The spleen, pancreas, adrenal glands and left kidney are identified. Right kidney not visualized, reportedly surgically absent. Gallbladder is present. No free air. IMPRESSION: 1. Persistent poorly defined extraluminal gas and fluid collection in the right pelvis near the expec rachel location of the appendix. Findings consistent with abscess secondary to perforated appendicitis. No significant change to size of this complex fluid collection since prior examination. Percutaneous catheter located just inferior to the fluid and gas collection. 2: Significant improvement of localized abscesses along the midline of the pelvis in the left pelvis compared with prior examination, both with associated percutaneous drainage catheters. Reviewed, dictated and finalized at location B. IMPRESSION: 1. Persistent poorly defined extraluminal gas and fluid collection in the right pelvis near the expected location of the appendix. Findings consistent with ab scess secondary to perforated appendicitis. No significant change to size of th is complex fluid collection since prior examination. Percutaneous catheter loca rachel just inferior to the fluid and gas collection. 2: Significant improvement of localized abscesses along the midline of the pel vis in the left pelvis compared with prior examination, both with associated pe rcutaneous drainage catheters.
== END 2020-10-08 08:11 | disposition home or self-care (01) ==
LOC: ANHIMG 08:11
PROVIDERS: PCP Internal Medicine; Visit Provider Surgery
DX: K35.32 Acute appendicitis with perforation, localized peritonitis, and gangrene, without abscess (principal)
CPT/HCPCS: 74177; Q9967

== ENCOUNTER 2020-10-23 12:05 | Outpatient (CLI) | payer MEDICARE, MEDICAID, SELFPAY ==
[2020-10-23 12:32] LABS: Basophils Absolute Auto 0.1 K/mm3 (0.0-0.1); Basophils Percent Auto 0.8 % (0.2-1.2); Eosinophils Absolute Auto 0.6 K/mm3 (0-0.3); Eosinophils Percent Auto 7.4 % (0-4.4); Hematocrit 43.3 % (37.0-47.0); Hemoglobin 13.7 g/dL (12.0-15.0); Immature Granulocyte Absolute 0.02 K/mm3 (0.00-0.031); Immature Granulocyte Percent A 0.2 % (0-0.5); Lymphocytes Absolute Auto 2.73 K/mm3 (0.9-3.2); Mean Corpuscular HGB Conc 31.6 g/dl (32-36); Mean Corpuscular Hemoglobin 28.4 pg (26-34); Mean Corpuscular Volume 89.8 fl (80-100); Mean Platelet Volume 9.4 fl (7.4-10.4); Monocytes Absolute Auto 0.6 K/mm3 (0.1-0.6); Monocytes Percent Auto 6.6 % (2.6-8.5); Neutrophils Absolute Auto 4.5 K/mm3 (1.3-6.7); Platelet Count Result 399 k/mm3 (150-375); Red Blood Count 4.82 M/mm3 (4.2-5.4); Red Cell Distribution Width 15.8 % (11.5-14.5); White Blood Count 8.5 K/mm3 (4.5-10.0)
[2020-10-23 12:36] LABS: Add Urine Microscopic? YES; Appearance Urine Cloudy (Clear); Bilirubin Urine Negative (Negative); Blood Urine Negative (Negative); Color Urine Amber (Yellow); Glucose Urine UA Negative (Negative); Ketones Urine Negative (Negative); Leukocyte Esterase Ur Trace LEU/UL (Negative); Mucus Urine Rare /lpf; Nitrate Urine Negative (Negative); Protein Urine Negative (Negative); RBC Urine 0-2 /hpf (0-2); Specific Grav Ur 1.017 (1.001-1.035); Squamous Epithelial Cell Urine Few /hpf (Few); Urobilinogen Urine Negative mg/dL (<2.0); WBC Urine 0-3 /hpf
== END 2020-10-23 12:06 | disposition home or self-care (01) ==
PROVIDERS: PCP Internal Medicine; Visit Provider Surgery
DX: K65.1 Peritoneal abscess (principal); R30.0 Dysuria
CPT/HCPCS: 36415; 81001; 85025

== ENCOUNTER → 2021-02-11 01:33 | Outpatient (CLI) | payer MEDICARE, MEDICAID, SELFPAY ==
[2021-02-11 18:23] LABS: SARS-CoV-2 RNA PCR Negative
== END ==
PROVIDERS: PCP Internal Medicine; Visit Provider Internal Medicine Gastroenterology
DX: Z01.812 Encounter for preprocedural laboratory examination (principal); Z20.822 Contact with and (suspected) exposure to COVID-19
CPT/HCPCS: C9803; U0003; U0005

== ENCOUNTER 2021-02-14 00:01 | Day surgery (SDC) | payer MEDICARE, MEDICAID, SELFPAY ==
[2020-12-03 11:55] VITALS: BMI 34.5
--- NOTE | 2020-12-12 10:35 | P.HP_ITS ---
History of Present Illness History of Present Illness Consent: Risks, benefits, and alternatives have been discussed and questions answered. Patient agrees to proceed with procedure. Chief complaint: family hx of colon polyps Narrative: Katherine Nuno is a 55 year old female here for colon cancer screening. She has a family history of polyps Review of Systems Review of Systems: All systems reviewed & are unremarkable except as noted in HPI and below PMFSH Past Medical History Medical History Anxiety Chronic pain Depression History of hypertension History of supraventricular tachycardia History of SVT and hypertension, which she takes metoprolol for now. Migraines Peripheral neuropathy Tobacco abuse Surgical History Surgical History History of esophagogastroduodenoscopy (EGD) EGD with dilatation of an esophageal stricture in 2010. History of right nephrectomy History of tubal ligation Family History Family History Other No pertinent family history Social History Social History Social History: The patient lives at home with her daughter. She wishes to be a full code. She does not have a durable healthcare power of physical therapy teacher, but wishes that her daughter would make decisions for her if she became unable to do so. Smoking packs per day: 1.25 Smoking cigarettes per day: 25.0 Years smoked: 40 Smoking pack-years: 50.00 Smoking status: Current every day smoker Tobacco type: cigarettes Alcohol intake: never Substance use: never Substance use type: does not use Living arrangements: with family Additional occupation/education comments: On disability Gender identity (if verbalized by the patient): Female Spiritual care concerns: No Meds Home Medications and Allergies Home Medications Medication Instructions Recorded Confirmed Type alprazolam 1 mg PO QID PRN 09/24/20 12/03/20 History hydrocodone-acetaminophen 1 tablet PO QID PRN 09/24/20 12/03/20 History metoprolol tartrate 100 mg PO BID 09/24/20 12/03/20 History topiramate 100 mg PO TID 09/24/20 12/03/20 History venlafaxine 75 mg PO BID 09/24/20 12/03/20 History albuterol sulfate [Ventolin HFA] 2 puff INHALATION QID PRN 12/03/20 12/03/20 History Allergies Allergy/AdvReac Type Severity Reaction Status Date / Time Penicillins Allergy Intermediate Rash Verified 12/03/20 11:57 Exam Const: General: alert Orientation/consciousness: patient oriented x3 Resp: Auscultation: clear to auscultation bilaterally Cardio: Rhythm: regular rhythm GI: GI Palp: Yes Soft to palpation and No Tenderness to palpation present (GI) Neuro: General: patient oriented x3 Assessment and Plan Assessment and plan (1) Colon cancer screening: Code(s): Z12.11 - Encounter for screening for malignant neoplasm of colon Status: Acute Assessment and Plan: Colonoscopy with possible biopsy or polypectomy or cautery or injection of substances.
[2021-01-29 11:56] VITALS: BMI 36.9
--- NOTE | 2021-02-12 13:12 | PM.HPGS ---
History of Present Illness History of Present Illness Consent: Risks, benefits, and alternatives have been discussed and questions answered. Patient agrees to proceed with procedure. Chief complaint: family hx of colon polyps Narrative: Katherine Nuno is a 55 year old female referred for colon cancer screening. She has a family history of polyps, and her son. Also her brother had colon cancer. She was recently found to have a ruptured appendicitis and will be having surgery in the near future Review of Systems Review of Systems: All systems reviewed & are unremarkable except as noted in HPI and below PMFSH Past Medical History Medical History Anxiety Chronic pain Depression History of hypertension History of supraventricular tachycardia History of SVT and hypertension, which she takes metoprolol for now. Migraines Peripheral neuropathy Tobacco abuse Surgical History Surgical History History of esophagogastroduodenoscopy (EGD) EGD with dilatation of an esophageal stricture in 2010. History of right nephrectomy History of tubal ligation Family History Family History Other No pertinent family history Social History Social History Social History: The patient lives at home with her daughter. She wishes to be a full code. She does not have a durable healthcare power of assistant district attorney, but wishes that her daughter would make decisions for her if she became unable to do so. Smoking packs per day: 1.25 Smoking cigarettes per day: 25.0 Years smoked: 40 Smoking pack-years: 50.00 Smoking status: Current every day smoker Tobacco type: cigarettes Alcohol intake: never Substance use: never Substance use type: does not use Living arrangements: with family Additional occupation/education comments: On disability Gender identity (if verbalized by the patient): Female Spiritual care concerns: No Meds Home Medications and Allergies Home Medications Medication Instructions Recorded Confirmed Type alprazolam 1 mg PO QID PRN 09/24/20 02/05/21 History hydrocodone-acetaminophen 1 tablet PO QID PRN 09/24/20 02/05/21 History metoprolol tartrate 100 mg PO BID 09/24/20 02/05/21 History topiramate 100 mg PO TID 09/24/20 02/05/21 History venlafaxine 75 mg PO BID 09/24/20 02/05/21 History albuterol sulfate [Ventolin HFA] 2 puff INHALATION QID PRN 12/03/20 02/05/21 History Allergies Allergy/AdvReac Type Severity Reaction Status Date / Time Penicillins Allergy Intermediate Rash Verified 02/14/21 07:47 Exam Resp: Auscultation: clear to auscultation bilaterally Cardio: Rate: regular rate Rhythm: regular rhythm GI: GI Palp: Yes Soft to palpation and No Tenderness to palpation present (GI) Assessment and Plan Assessment and plan (1) Colon cancer screening: Code(s): Z12.11 - Encounter for screening for malignant neoplasm of colon Status: Acute Assessment and Plan: Colonoscopy with possible biopsy or polypectomy or cautery or injection of substances.
[2021-02-14 07:48] VITALS: BP 114/73; PULSE 66; RESP 16; TEMP 36.3; O2SAT 96; BMI 36.3
--- NOTE | 2021-02-14 07:57 | WPDANESEPPF ---
Anes - Initial Pre Proc Eval Procedure: Operation Date: 02/14/21 08:30 Proposed Procedures p Screening Colonoscopy - Chito Ochoa MD Date/Time: 02/14/21 07:57 Surgeon: Chito Ochoa MD Pre Op Diagnosis: family hx of colon polyps Patient Data Age: 55 Gender: F Height: 1.7 m Weight: 105.4 kg Last Vital Signs Temp 36.3 C L 02/14/21 07:48 Pulse 66 02/14/21 07:48 Resp 16 02/14/21 07:48 BP 114/73 02/14/21 07:48 Pulse Ox 96 02/14/21 07:48 Allergies Allergy/AdvReac Type Severity Reaction Status Date / Time Penicillins Allergy Intermediate Rash Verified 02/14/21 07:47 Home Medications Medication Instructions Recorded Confirmed Type alprazolam 1 mg PO QID PRN 09/24/20 02/14/21 History hydrocodone-acetaminophen 1 tablet PO QID PRN 09/24/20 02/14/21 History metoprolol tartrate 100 mg PO BID 09/24/20 02/14/21 History topiramate 100 mg PO TID 09/24/20 02/14/21 History venlafaxine 75 mg PO BID 09/24/20 02/14/21 History albuterol sulfate [Ventolin HFA] 2 puff INHALATION QID PRN 12/03/20 02/14/21 History Patient hx anesthesia problems: none Family hx anesthesia problems: none Results Review: All pre-operative results and documents have been reviewed as part of the pre-operative evaluation. [facility] Past Medical History Medical History Anxiety Chronic pain Depression History of hypertension History of supraventricular tachycardia History of SVT and hypertension, which she takes metoprolol for now. Migraines Peripheral neuropathy Tobacco abuse Surgical History Surgical History History of esophagogastroduodenoscopy (EGD) EGD with dilatation of an esophageal stricture in 2010. History of right nephrectomy History of tubal ligation Family History Family History Other No pertinent family history Social History Social History Social History: The patient lives at home with her daughter. She wishes to be a full code. She does not have a durable healthcare power of sports attorney, but wishes that her daughter would make decisions for her if she became unable to do so. Smoking packs per day: 1.25 Smoking cigarettes per day: 25.0 Years smoked: 40 Smoking pack-years: 50.00 Smoking status: Current every day smoker Tobacco type: cigarettes Alcohol intake: never Substance use: never Substance use type: does not use Living arrangements: with family Additional occupation/education comments: On disability Gender identity (if verbalized by the patient): Female Spiritual care concerns: No Anes - Eval Final PreProcedure Day of Procedure 02/14/21 07:57 Patient weight: obese Heart: regular rate and rhythm Lungs: clear to auscultation Airway: Mallampati scale class II Neurological: alert and oriented Last oral intake: >/= 8 hours ASA classification: III Emergent: no Anesthetic plan: proceed Anesthesia type and monitoring: general GIVS and standard monitoring Results Review: All pre-operative results and documents have been reviewed as part of the pre-operative evaluation. Informed Consent: The patient's anesthetic plan and its attendant risks and benefits were discussed with the patient/family/POA. Questions were solicited and answers provided to the satisfaction of the patient/family/POA.
[2021-02-14] MEDS: LACTATED RINGERS 1,000 ML 150 ML IV CONT (08:03)
[2021-02-14 08:46] VITALS: BP 117/66; PULSE 74; RESP 22; O2SAT 98
[2021-02-14 08:56] VITALS: BP 126/70; PULSE 66; RESP 17; O2SAT 100
[2021-02-14 09:06] VITALS: BP 145/84; PULSE 60; RESP 23; O2SAT 99
== END 2021-02-14 09:08 | disposition home or self-care (01) ==
PROVIDERS: PCP Internal Medicine; Visit Provider Internal Medicine Gastroenterology
PROC: 0DJD8ZZ Inspection of Lower Intestinal Tract, Via Natural or Artificial Opening Endoscopic (ICD-10-PCS; CPT 45378; principal; 2021-02-14 08:30)
DX: K57.30 Diverticulosis of large intestine without perforation or abscess without bleeding (principal); Z12.11 Encounter for screening for malignant neoplasm of colon; I10 Essential (primary) hypertension; I47.1 Supraventricular tachycardia; G62.9 Polyneuropathy, unspecified; F41.9 Anxiety disorder, unspecified; F32.A Depression, unspecified; Z83.71 Family history of colonic polyps; Z90.5 Acquired absence of kidney
CPT/HCPCS: G0105; C9803; J2704; J7120; U0003; U0005

== ENCOUNTER 2021-10-09 17:09 | Emergency (ER) | payer MEDICARE, MEDICAID, SELFPAY ==
[2021-10-09 17:11] VITALS: BP 147/75; PULSE 76; RESP 18; TEMP 36.3; O2SAT 96
--- NOTE | 2021-10-09 17:37 | ED.ALLEREA ---
HPI - Allergic Reaction General Chief complaint: Allergic Reaction Stated complaint: lip swelling Time Seen by Provider: 10/09/21 17:19 History of Present Illness HPI narrative: Patient is a 56-year-old female here for evaluation of swelling to her lower lip today. Patient states she woke up and she noted that she felt a ball in her inner lower lip. States that this sensation resolved, but now she feels swollen on her right lower lip. The swelling is not painful or itchy. Patient took an aspirin but no other medications for this today. Denies difficulty breathing, throat tightness, cough, shortness of breath, new medications. She called her PCP and she has a follow up appointment scheduled tomorrow. Denies ZULEIMA inhibitor use. Related Data Home Medications Medication Instructions Recorded Confirmed alprazolam 1 mg tablet 1 mg PO QID PRN Anxiety 09/24/20 08/21/21 hydrocodone 7.5 mg-acetaminophen 1 tablet PO QID PRN Pain 09/24/20 08/21/21 325 mg tablet metoprolol tartrate 100 mg tablet 100 mg PO BID 09/24/20 08/21/21 topiramate 100 mg tablet 100 mg PO TID 09/24/20 08/21/21 venlafaxine 75 mg tablet,extended 75 mg PO BID 09/24/20 08/21/21 release 24 hr albuterol sulfate 90 mcg/actuation 2 puff inhalation QID PRN 12/03/20 08/21/21 aerosol inhaler (Ventolin HFA) Shortness Of Breath Or Wheezing magnesium carb,citrate,oxide mg PO 08/20/21 08/21/21 Allergies Allergy/AdvReac Type Severity Reaction Status Date / Time Penicillins Allergy Intermediate Rash Verified 10/09/21 17:48 Review of Systems Review of Systems: Gen: Denies fevers or chills Eyes: Denies eye pain or visual change ENT: Reports lower lip swelling Respiratory: Denies shortness of breath or cough CV: Denies chest pain or palpitations GI: Denies abdominal pain nausea, emesis or diarrhea denies burning, urgency, frequency or hematuria Musculoskeletal: Denies back pain or muscle pain Neuro: Denies numbness, tingling, weakness or focal weakness Skin: Denies rash Except as documented, all other systems reviewed and negative PMFSH Past Medical History Medical History Anxiety Chronic pain Depression History of hypertension History of supraventricular tachycardia History of SVT and hypertension, which she takes metoprolol for now. Migraines Peripheral neuropathy Tobacco abuse Surgical History Surgical History History of esophagogastroduodenoscopy (EGD) EGD with dilatation of an esophageal stricture in 2010. History of right nephrectomy History of tubal ligation Family History Family History Father Asthma Cancer Hypertension Thyroid disorder Son Asthma Depression Other Asthma Mother Diabetes mellitus Hypertension Heart disease Other Hypertension Heart disease Other No pertinent family history Social History Social History Social History: The patient lives at home with her daughter. She wishes to be a full code. She does not have a durable healthcare power of family law attorney, but wishes that her daughter would make decisions for her if she became unable to do so. Smoking packs per day: 1.25 Smoking cigarettes per day: 25.0 Years smoked: 40 Smoking pack-years: 50.00 Smoking status: Current every day smoker Tobacco type: cigarettes Alcohol intake: never Substance use: never Substance use type: does not use Additional occupation/education comments: On disability Gender identity (if verbalized by the patient): Female Spiritual care concerns: No Exam Narrative: APPEARANCE: Well appearing, no pain in distress, well-nourished. Head: Normocephalic and atraumatic. EYES: PERRLA/EOMI, conjunctivae clear NOSE: No nasal drainage EARS: External ear normal in appearance. Cerum
[2021-10-09] MEDS: predniSONE 20 MG TABLET 40 MG PO (17:47)
[2021-10-09] MEDS: diphenhydrAMINE HCl CAP 25 MG CAPSULE 50 MG PO (17:48)
[2021-10-09 18:52] VITALS: BP 126/78; PULSE 73; RESP 16; O2SAT 97
== END 2021-10-09 18:54 | disposition home or self-care (01) ==
LOC: ANHED 18:07
PROVIDERS: Emergency Provider Emergency Medicine; PCP Internal Medicine
DX: T78.40XA Allergy, unspecified, initial encounter (principal); I10 Essential (primary) hypertension; G62.9 Polyneuropathy, unspecified; F32.A Depression, unspecified; F41.9 Anxiety disorder, unspecified; Z90.5 Acquired absence of kidney; F17.210 Nicotine dependence, cigarettes, uncomplicated
CPT/HCPCS: 99283; A9270; J7512

== ENCOUNTER 2022-10-28 18:33 | Emergency (ER) | payer MEDICARE, MEDICAID, SELFPAY ==
--- NOTE | ~2022-10-28 | XR_ITS ---
EXAMINATION: XR pelvis 1-2V DATE: 10/28/2022 22:05 INDICATION: Hip pain. TECHNIQUE: An anteroposterior view of the pelvis was obtained. COMPARISON: CT abdomen and pelvis 10/08/2020 FINDINGS: Bone alignment is normal. No fracture. There is mild lumbar spondylosis. There is mild oste oarthritis of the hips. IMPRESSION: 1. Mild osteoarthritis of the hips. Reviewed, dictated and finalized at location E.
[2022-10-28 18:54] VITALS: BP 153/86; PULSE 76; RESP 18; TEMP 36.5; O2SAT 96
--- NOTE | 2022-10-28 23:14 | ED.GENADULT ---
HPI - General Adult General Chief complaint: Extremity Injury, Lower Stated complaint: nausea and bloating and right LE injury Time Seen by Provider: 10/28/22 21:48 History of Present Illness HPI narrative: 57-year-old female with history of chronic pain presenting with a thigh injury. Patient says that in the middle the night she slipped and ended up doing the [place] splits. After that she has been having pain in her she has been able to walk with a limp. She denies numbness tingling weakness to the extremity. the pain is worse with movement improves with rest. She is on Vicodin daily for chronic pain issues. Related Data Home Medications Medication Instructions Recorded Confirmed alprazolam 1 mg tablet 1 mg PO QID PRN Anxiety 09/24/20 08/21/21 hydrocodone 7.5 mg-acetaminophen 1 tablet PO QID PRN Pain 09/24/20 08/21/21 325 mg tablet metoprolol tartrate 100 mg tablet 100 mg PO BID 09/24/20 08/21/21 topiramate 100 mg tablet 100 mg PO TID 09/24/20 08/21/21 venlafaxine 75 mg tablet,extended 75 mg PO BID 09/24/20 08/21/21 release 24 hr albuterol sulfate 90 mcg/actuation 2 puff inhalation QID PRN 12/03/20 08/21/21 aerosol inhaler (Ventolin HFA) Shortness Of Breath Or Wheezing magnesium carb,citrate,oxide mg PO 08/20/21 08/21/21 Allergies Allergy/AdvReac Type Severity Reaction Status Date / Time Penicillins Allergy Intermediate Rash Verified 10/28/22 18:34 [facility] Past Medical History Medical History Anxiety Chronic pain Depression History of hypertension History of supraventricular tachycardia History of SVT and hypertension, which she takes metoprolol for now. Migraines Peripheral neuropathy Tobacco abuse Surgical History Surgical History History of esophagogastroduodenoscopy (EGD) EGD with dilatation of an esophageal stricture in 2010. History of right nephrectomy History of tubal ligation Family History Family History Father Asthma Cancer Hypertension Thyroid disorder Son Asthma Depression Other Asthma Mother Diabetes mellitus Hypertension Heart disease Other Hypertension Heart disease Other No pertinent family history Social History Social History Social History: The patient lives at home with her daughter. She wishes to be a full code. She does not have a durable healthcare power of assistant city attorney, but wishes that her daughter would make decisions for her if she became unable to do so. Smoking packs per day: 1.25 Smoking cigarettes per day: 25.0 Years smoked: 40 Smoking pack-years: 50.00 Smoking status: Current every day smoker Tobacco type: cigarettes Alcohol intake: never Substance use: never Substance use type: does not use Living arrangements: with family Occupation/Education: other Additional occupation/education comments: On disability Gender identity (if verbalized by the patient): Female Spiritual care concerns: No Exam Narrative: APPEARANCE: No apparent distress. Head: atraumatic. EYES: EOMI, NOSE: Atraumatic NECK: Trachea midline RESPIRATORY: No increased rate of breathing CARDIOVASCULAR: RRR, ABDOMINAL: Non-distended MUSCULOSKELETAl: focal exam of the lower extremities revealed no obvious bruising deformities or skin findings. Pulses are +2. She is able lift her leg off the bed. Sensation intact NEURO: Alert. Moving 4/4 extremities SKIN:: Warm, dry. Normal color PSYCHIATRIC: Normal affect Course Vital Signs Vital signs: Vital Signs Temperature 97.7 F 10/28/22 18:54 Pulse Rate 76 10/28/22 18:54 Respiratory Rate 18 10/28/22 18:54 Blood Pressure 153/86 H 10/28/22 18:54 Pulse Oximetry 96 10/28/22 18:54 Oxygen Delivery Room Air 10/28/22 18:54 Temperature
[2022-10-29 00:13] VITALS: BP 174/87; PULSE 64; RESP 18; TEMP 36.6; O2SAT 95
[2022-10-29] MEDS: LIDOCAINE 5% PATCH 1 PATCH TRANSDERM (00:16)
[2022-10-29] MEDS: IBUPROFEN 400 MG TABLET 800 MG PO (00:17)
[2022-10-29] MEDS: methocarbamoL 750 MG TABLET 1500 MG PO (00:17)
[2022-10-29] MEDS: ACETAMINOPHEN 500 MG TABLET 1000 MG PO (00:17)
== END 2022-10-29 00:28 | disposition home or self-care (01) ==
PROVIDERS: Emergency Provider Emergency Medicine; PCP Internal Medicine
DX: M79.606 Pain in leg, unspecified (principal); G89.29 Other chronic pain; I10 Essential (primary) hypertension; F17.210 Nicotine dependence, cigarettes, uncomplicated; Z79.891 Long term (current) use of opiate analgesic; Z79.899 Other long term (current) drug therapy; W01.0XXA Fall on same level from slipping, tripping and stumbling without subsequent striking against object, initial encounter
CPT/HCPCS: 72170; 99283; A9270

== ENCOUNTER 2024-07-04 09:28 | Emergency (ER) | payer MEDICARE, MEDICAID, SELFPAY ==
--- NOTE | ~2024-07-04 | XR_ITS ---
XR chest 1V portable Ordering provider: Tanya Meyer MD History: 58 years Female with . palpitations, sob, HX OF ASTHMA . Comparison: August 01, 2014 FINDINGS: MEDIASTINUM: The cardiac silhouette is not enlarged. Congestive mc. LUNGS: No effusions or pneumothorax. Prominent markings in the lower lobes more on the right side which may indicate bronchitis versus ear ly pneumonia.. OTHER: No free air under the diaphragm. IMPRESSION: Prominent markings in the lower lobes more on the right side with possible early pneumonia. Follow-up advised. Reviewed, dictated and finalized at location A. IMPRESSION: Prominent markings in the lower lobes more on the right side with possible rip y pneumonia. Follow-up advised.
[2024-07-04 09:36] VITALS: BP 179/89; PULSE 77; RESP 20; O2SAT 97
--- NOTE | 2024-07-04 09:54 | ECG_ITS ---
Test Date: 2024-07-04 09:47:53 Measurements Intervals [place] Rate: 72 P: 54 KS: 157 QRS: 12 QRSD: 111 T: 47 QT: 394 QTc: 434 Interpretive Statements SINUS RHYTHM WITH FREQUENT VENTRICULAR PREMATURE COMPLEXES MODERATE INTRAVENTRICULAR CONDUCTION DELAY [110+ ms QRS DURATION] ABNORMAL ECG Electronically Signed On 07-05-2024 12:01:34 CDT by Rogelio Skelton M.D.
[2024-07-04 10:06] LABS: Basophils Percent Auto 0.4 % (0.2-1.2); Eosinophils Absolute Auto 0.6 K/mm3 (0-0.3); Eosinophils Percent Auto 5.2 % (0-4.4); Hematocrit 39.4 % (37.0-47.0); Hemoglobin 12.6 g/dL (12.0-15.0); Immature Granulocyte Absolute 0.06 K/mm3 (0.00-0.031); Immature Granulocyte Percent A 0.6 % (0-0.5); Lymphocytes Absolute Auto 3.83 K/mm3 (0.9-3.2); Lymphocytes Percent Auto 35.8 % (18.3-44.2); Mean Corpuscular Hemoglobin 30.3 pg (26-34); Mean Corpuscular Volume 94.7 fl (80-100); Mean Platelet Volume 9.4 fl (7.4-10.4); Monocytes Absolute Auto 0.5 K/mm3 (0.1-0.6); Monocytes Percent Auto 4.8 % (2.6-8.5); Neutrophils Absolute Auto 5.7 K/mm3 (1.3-6.7); Neutrophils Percent Auto 53.2 % (45.5-73.1); Platelet Count Result 348 k/mm3 (150-375); Red Blood Count 4.16 M/mm3 (4.2-5.4); Red Cell Distribution Width 13.2 % (11.5-14.5); White Blood Count 10.7 K/mm3 (4.5-10.0)
--- NOTE | 2024-07-04 10:11 | ED.ARRPALP ---
HPI - Arrhythmia/Palpitations General Chief Complaint: Arrhythmia/Palpitations Stated Complaint: heart skipping Time Seen by Provider: 07/04/24 09:54 Source: patient and RN notes reviewed Mode of arrival: EMS Limitations: no limitations History of Present Illness HPI narrative: Patient presents with complaint of her heart skipping a beat. No crystal palpitations. She is having generalized weakness. No cough, fevers, or chills. She feels short of breath, particularly dyspnea on exertion. Also non radiating chest pain that started at 8am and nausea. Has also developed a headache. EMS noted she was having nonperfusing PVCs. 20 years ago developed a history of SVT and for this she had been on metoprolol for years. Recently admitted in the hospital in [place] for diagnosis of influenza with concomittent pneumonia. Completed antibiotics. While hospitalized, there were issues with bradycardia so her metoprolol dose was reduced. Because she was still hypertensive, however, another BP mediation was added. Denies underlying respiratory conditions though she uses an albuterol inhaler 2x/year for various URI issues. Has an appointment to see tub tender through [facility] this week. Not on a diuretic or anticoagulation. Notes that she had bilateral lower extremity edema yesterday that pitted and felt some pain with the distention but that this has nearly resolved and feels much better. Has previously had to wear an event/Holter monitor but not in approximately 10 years. Cardiac risk factors: HTN: + HLD: + DM: No Obese: Yes Smoker: Yes. At first says former , quitting 2 weeks ago but then states has gone through 2 packs in the past week. Fam Hx: No PMH NE/TIA/CVA: No Related Data Home Medications ?Medication ?Instructions ?Recorded ?Confirmed ?Last Taken ?Type alprazolam 1 mg tablet 1 mg PO QID PRN Anxiety 09/24/20 08/21/21 02/13/21 History hydrocodone 7.5 mg-acetaminophen 1 tablet PO QID PRN Pain 09/24/20 08/21/21 02/13/21 History 325 mg tablet metoprolol tartrate 100 mg tablet 100 mg PO BID 09/24/20 08/21/21 02/13/21 History topiramate 100 mg tablet 100 mg PO TID 09/24/20 08/21/21 02/13/21 History venlafaxine 75 mg tablet,extended 75 mg PO BID 09/24/20 08/21/21 02/13/21 History release 24 hr albuterol sulfate 90 mcg/actuation 2 puff inhalation QID PRN 12/03/20 08/21/21 02/13/21 History aerosol inhaler (Ventolin HFA) Shortness Of Breath Or Wheezing magnesium carb,citrate,oxide mg PO 08/20/21 08/21/21 Unknown History Allergies Allergy/AdvReac Type Severity Reaction Status Date / Time Penicillins Allergy Intermediate Rash Verified 07/04/24 10:47 [facility] Past Medical History Medical History (Updated 07/06/24 @ 13:23 by Tanya Meyer MD) Obese HLD (hyperlipidemia) History of hypertension History of supraventricular tachycardia History of SVT and hypertension, which she takes metoprolol for now. Migraines Depression Anxiety Tobacco abuse Chronic pain Peripheral neuropathy Surgical History Surgical History History of tubal ligation History of right nephrectomy History of esophagogastroduodenoscopy (EGD) EGD with dilatation of an esophageal stricture in 2010. Family History Family History Father Asthma Cancer Hypertension Thyroid disorder Son Asthma Depression Other Asthma Mother Diabetes mellitus Hypertension Heart disease CHF (congestive heart failure) Other Hypertension Heart disease Other No pertinent family history Social History Social History Social History: The patient lives at home with her daughter. She wishes to be a full code. She does not have a durable healthcare power of state attorney, but wishes that her daughter would make decisions for her if she became unable to do so. Smoking packs per day: 1.25 Smoking cigarettes per day: 25.0 Years smoked: 40 Smoking pack-years: 50.00 Smoking status: Current every day smoker Tobacco type: cigarettes Alcohol intake: never Substance use: never Substance use type: does not use Living arrangements: with family Occupation/Education: other Additional occupation/education comments: On disability Gender identity (if verbalized by the patient): Female Spiritual care concerns: No Exam Narrative: GENERAL: well-nourished, and in no acute distress. HEAD: Normocephalic, atraumatic. EYES: Non injected, non icteric ENT: Nares clear, no rhinorrhea or epistaxis. NECK: Supple. CHEST: Speaking in full sentences. No respiratory distress. Coarse bilateral breath sounds. HEART: Regular rate and rhythm. Intermittent PVCs seen on monitor ABDOMEN: Obese but Soft, nondistended. EXTREMITIES: Normal range of motion. Trace bilateral lower extremity edema. SKIN: Warm, dry, no rash. NEURO: No focal deficits. Alert and oriented x3. PSYCH: Normal mood and affect. Course Vital Signs Vital signs: Vital Signs Pulse Rate 77 07/04/24 09:36 Respiratory Rate 20 07/04/24 09:36 Blood Pressure 179/89 H 07/04/24 09:36 Pulse Oximetry 97 07/04/24 09:36 Oxygen Delivery Room Air 07/04/24 09:36 Temperature 97.8 F 07/04/24 10:46 Pulse Rate 72 07/04/24 14:21 Respiratory Rate 16 07/04/24 14:21 Blood Pressure 117/67 07/04/24 14:21 Pulse Oximetry 97 07/04/24 14:21 Oxygen Delivery Room Air 07/04/24 09:36 MDM - Arrhythmia/Palpitations MDM Narrative Medical decision making narrative: Patient presents with report of her heart skpping beats. In the emergency department they are afebrile with vital signs notable for hypertension. Mild leukocytosis. Chest x-ray (although initially unable to view the images myself) interpreted as possible early pneumonia - versus current or residual given history. Suspect this is still early sequela of recent influenza and PNA that has already been treated. No current cough, fevers, chills. D-dimer normal. BNP mildly elevated but not to a degree to suggest acute heart failure based on the reference range of the assay for patient's age. HEART SCORE History 2 highly suspicious 1 moderately suspicious 0 slightly suspicious History score [address] depression/elevation not due to LBBB, LVH, or digoxin [address] depression but LBBB, LVH, nonspecific repolarization changes 0 normal ECG score 0 Age 2 >/= 65 1 45-64 0 <45 Age score 1 Risk factors (HTN, hypercholesterolemia, DM, obesity with BMI >30, current smoker or cessation </=3mo), positive fam hx with parent or sibling with CVD before age 65, atherosclerotic disease (prior NE, PCI/CABG, CVA/TIA, or peripheral arterial disease) 2 >/= 3 risk factors or history of atherosclerotic dz 1 - 1-2 risk factors 0 no known risk factors Risk factor score 2 (HTN, HLD, obesity, smoker) Initial Troponin 2 >3 times normal limit 1 1-3 times normal limit 0 less than or equal to normal limit Troponin score 0 Total HEART Score 3. Repeat troponin normal. Patient reassessed approximately 2:00 p.m.. She reports to being fatigued however feeling generally okay otherwise, better than before. We discussed the importance of keeping her upcoming appointment with Cardiology and that they may determine next steps which may include medication changes, event monitor, echo, etc. we also discussed that recovery from the flu and/or pneumonia can take while. She verifies understanding and is in agreement. She is retired so not need of work note. Differential Diagnosis Differential diagnosis: Likely palpitations, anxiety, sinus tachycardia, artial fibrillation, artial flutter, ventricular premature beats, supraventricular tachycardia, ventricular tachycardia and other (subtherapeutic medication; sequela of recent influenza/PNA; acute heart failure; ACS; PE; ) Lab Data Attestation: I reviewed the patient's lab results. 07/04/24 09:59 07/04/24 09:59 Labs: Lab Results 07/04/24 07/04/24 07/04/24 Range/Units 09:59 10:31 12:13 WBC 10.7 H (4.5-10.0) K/mm3 RBC 4.16 L (4.2-5.4) M/mm3 Hgb 12.6 (12.0-15.0) g/dL Hct 39.4 (37.0-47.0) % MCV 94.7 (80-100) fl MCH 30.3 (26-34) pg MCHC 32.0 (32-36) g/dl RDW 13.2 (11.5-14.5) % Plt Count 348 (150-375) k/mm3 MPV 9.4 (7.4-10.4) fl Immature Gran % (Auto) 0.6 H (0-0.5) % Neut % (Auto) 53.2 (45.5-73.1) % Lymph % (Auto) 35.8 (18.3-44.2) % [place] % (Auto) 4.8 (2.6-8.5) % Eos % (Auto) 5.2 H (0-4.4) % Baso % (Auto) 0.4 (0.2-1.2) % Lymph # (Auto) 3.83 H (0.9-3.2) K/mm3 [place] # (Auto) 0.5 (0.1-0.6) K/mm3 Eos # (Auto) 0.6 H (0-0.3) K/mm3 Baso # (Auto) 0.0 (0.0-0.1) K/mm3 Abs Immat Gran (auto) 0.06 H (0.00-0.031) K/mm3 Absolute Neuts (auto) 5.7 (1.3-6.7) K/mm3 Absolute Nucleated RBC 0.000 (0.0-0.012) K/mm3 Nucleated RBC % 0.0 (0.0-0.2) % PT 13.8 (11.1-14.7) Seconds INR 1.0 APTT 30.1 (22.3-36.8) Seconds D-Dimer 0.31 (<0.48) ug/mL Sodium 139 (137-145) mmol/L Potassium 3.6 (3.4-5.0) mmol/L Chloride 107 (98-107) mmol/L Carbon Dioxide 22 (22-30) mmol/L Anion Gap 10 (4-12) mmol/L BUN 12 (7-17) mg/dL Creatinine 0.94 (0.7-1.0) mg/dL Estim Creat Clear Calc 75 ml/min Estimated GFR > 60 (59 - ) Glucose 136 H (65-110) mg/dL Calcium 8.7 (8.4-10.2) mg/dL Total Bilirubin 0.2 (0.2-1.3) mg/dL AST 24 (14-36) U/L ALT 19 (6-35) U/L Alkaline Phosphatase 95 (38-126) U/L Troponin I < 0.012 < 0.012 (0.000-0.034) ng/mL NT-Pro-B Natriuret Pep 269 H (19.9-100) pg/mL Total Protein 8.0 (6.3-8.2) g/dL Albumin 3.8 (3.5-5.1) g/dL Lipase 174 (23-300) U/L Influenza A (RT-PCR) Negative (Negative) Influenza B (RT-PCR) Negative (Negative) RSV (RT-PCR) Negative (Negative) SARS-CoV-2 RNA (RT-PCR) Negative (Negative) Imaging Data Radiologist's impression: IMPRESSION: Prominent markings in the lower lobes more on the right side with possible early pneumonia. Follow-up advised. ECG Data EKG #1: Attestation: I personally reviewed and interpreted this ECG as follows: ECG completion date: 07/04/24 ECG completion time: 09:47 Interpretation: Normal sinus rhythm at a rate of 72 beats per minute. UT interval 157. QRS 111. QT/QTC 394/419. Patient does have somewhat frequent PVCs, potentially quadrigeminy although not enough data to determine Discharge Plan Discharge Clinical Impression: Premature ventricular contractions (PVCs) (VPCs), Leukocytosis, Pneumonia Patient Disposition: Home, Self-Care Condition: Stable Instructions: Antibiotic Form, Community Acquired Pneumonia (DC), Leukocytosis (ED), Premature Ventricular Contractions (ED) Additional Instructions: As we discussed, it can take a while to recover from influenza and/or pneumonia. Rest and maintain your hydration. Follow-up with primary care physician. Your workup did show that you are having PVCs (premature ventricular contractions). Keep your upcoming appointment with Cardiology this week. Return to the emergency department with any new or worsening symptoms. Continue taking all of your medications as prescribed. Patient Language: Albanian Prescriptions: No Action magnesium carb,citrate,oxide 300 mg magnesium tablet PO mupirocin 2 % ointment 1 applic topical BID Qty: 22 0RF fluticasone propionate [Flonase Allergy Relief] 50 mcg/actuation spray,suspension 2 spray intranasal BID Qty: 16 3RF Rx Instructions: administer into each nostril azithromycin 250 mg tablet See Rx Instructions PO .COMPLEX Qty: 6 0RF Rx Instructions: For 250 mg dose pack: take 500 mg today (day 1), then 250 mg for 4 days (days 2-5) PO alprazolam 1 mg Tablet 1 mg PO QID PRN (Reason: Anxiety) metoprolol tartrate 100 mg Tablet 100 mg PO BID topiramate 100 mg Tablet 100 mg PO TID venlafaxine 75 mg Tablet Extended Release 24hr 75 mg PO BID hydrocodone-acetaminophen 7.5-325 mg tablet 1 tablet PO QID PRN (Reason: Pain) albuterol sulfate [Ventolin HFA] 90 mcg/actuation HFA aerosol inhaler 2 puff INHALATION QID PRN (Reason: Shortness Of Breath Or Wheezing) prednisone 20 mg tablet 40 mg PO DAILY 5 Days Qty: 10 0RF acetaminophen 500 mg tablet 1,000 mg PO TID PRN (Reason: nicole) 7 Days Qty: 42 0RF ibuprofen 800 mg tablet 800 mg PO TID PRN (Reason: pain) 7 Days Qty: 21 0RF methocarbamol 750 mg tablet 1,500 mg PO TID Qty: 35 0RF lidocaine 5 % adhesive patch,medicated 1 patch topical DAILY Qty: 15 0RF Rx Instructions: leave on most painful area for up to 12 hrs omeprazole 20 mg capsule,delayed release(DR/EC) See Rx Instructions .ROUTE .COMPLEX Qty: 90 3RF Dose Instruction: TAKE 1 CAPSULE BY MOUTH DAILY Rx Instructions: TAKE 1 CAPSULE BY MOUTH DAILY Follow-up/Referrals: Wendy,Cedric Estevez MD [Primary Care Provider] - Time of Disposition: 14:05
[2024-07-04 10:19] LABS: Alanine Aminotransferase 19 U/L (6-35); Albumin Level 3.8 g/dL (3.5-5.1); Alkaline Phosphatase 95 U/L (38-126); Anion Gap 10 mmol/L (4-12); Aspartate Amino Transferase 24 U/L (14-36); Bilirubin,Total 0.2 mg/dL (0.2-1.3); Blood Urea Nitrogen 12 mg/dL (7-17); Calcium 8.7 mg/dL (8.4-10.2); Carbon Dioxide 22 mmol/L (22-30); Chloride 107 mmol/L (98-107); Estimated CRCL calculation 75 ml/min; Estimated Glomerular Filt Rate > 60; Glucose 136 mg/dL (65-110); Lipase 174 U/L (23-300); Potassium 3.6 mmol/L (3.4-5.0); Sodium 139 mmol/L (137-145)
[2024-07-04 10:24] LABS: Prothrombin Time 13.8 Seconds (11.1-14.7)
[2024-07-04 10:25] LABS: Partial Thromboplastin Time 30.1 Seconds (22.3-36.8)
[2024-07-04 10:32] LABS: Troponin I < 0.012 ng/mL (0.000-0.034)
[2024-07-04] MEDS: ASPIRIN 81 MG CHEWABLE TABLET 324 MG PO (10:44)
[2024-07-04] MEDS: ONDANSETRON HCL ODT 4 MG TABLET PO (10:44)
[2024-07-04 10:46] VITALS: BP 127/77; PULSE 69; RESP 18; TEMP 36.6; O2SAT 95
[2024-07-04 10:47] LABS: D Dimer 0.31 ug/mL (<0.48)
[2024-07-04 10:55] LABS: NT Pro B Type Natriuretic Pept 269 pg/mL (19.9-100)
--- OUTSIDE RECORDS SUMMARY | 2024-07-04 11:05 | XMS_ITS | CONTINUITY OF CARE DOCUMENT ---
Author Name cynthia marie Address Unknown Organization [facility] Address [id number] [place] [address] [address] [place] [address] Phone [phone] Care Team Providers Care Ship Surveyor Name Role Phone Luis Kirk MD Unavailable [phone] Luis Kirk MD Unavailable [phone] INSURANCE PROVIDERS Payer name Policy type / Coverage type [employer] green party ID [id number] [employer] MEDICARE ADVANTAGE PLAN (PPO) Medicare [id number] HEALTHCARE AND FAMILY SERVICES Medicaid 1 [id number]
--- OUTSIDE RECORDS SUMMARY | 2024-07-04 11:05 | XMS_ITS | Clinical Summary ---
Author Organization [facility] Address [facility] [place] [address] Care Team Providers Care Principal System Software Engineer Name Role Phone Unavailable Primary Care Provider Unavailabl e Social History Tobacco Use Types Packs/Day Years Used Date Smoking Tobacco: Never Assessed Comments Unknown Sex and Gender Information Value Date Recorded Sex Assigned at Not on file Legal Sex Female 8:35 PM CDT Gender Identity Not on file Sexual Orientation Not on file Plan of Treatment Health Maintenance Due Date Last Done Comments Cervical Cancer Screening Pa p Smear (Age 30 to 64) Every 3 Years 1966 Colorectal Cancer Screening Colonoscopy (10 Years) 1966 Annual Physical 1969 Hepatitis C 1984 DTaP, Tdap and Td Vaccines ( 1 - Tdap) 1985 Hepatitis B Vaccines (1 of 3 - 19+ 3-dose series) 1985 Cervical Cancer Screening Pa p with HPV Testing (Age 30 to 64) Every 5 Years 1996 Cervical Cancer Screening with HPV 1996 Mammogram Screening 2006 Zoster Vaccines (1 of 2) 2016 COVID-19 Vaccine (2023-2 5 season) 2023 Influenza Adult (#1) 2024 Meningococcal B Vaccine Aged Out No l onger eligible based on patient's age to complete this topic Meningococcal Vaccine Aged Out No paco maria elena eligible based on patient's age to complete this topic Pneumococcal Vaccine: Pediat rics (0 to 5 Years) and At-Risk Patients (6 to 64 Years) Aged Out No longer eligible b ased on patient's age to complete this topic RSV Immunizations Under 20 Months Aged Out No longer eligible based on patient's age to complete this topic
[2024-07-04 11:15] LABS: Influenza A QL RT-PCR Negative (Negative); Influenza B QL RT-PCR Negative (Negative); RSV RNA, RT-PCR Negative (Negative); SARS-CoV-2 RNA PCR Negative (Negative)
[2024-07-04 13:17] LABS: Troponin I < 0.012 ng/mL (0.000-0.034)
[2024-07-04 13:41] VITALS: BP 127/71; PULSE 71; RESP 19; O2SAT 98
[2024-07-04 14:21] VITALS: BP 117/67; PULSE 72; RESP 16; O2SAT 97
== END 2024-07-04 14:24 | disposition home or self-care (01) ==
PROVIDERS: Emergency Provider Student in an Organized Health Care Education/Training Program; PCP Internal Medicine
DX: J18.9 Pneumonia, unspecified organism (principal); I49.3 Ventricular premature depolarization; D72.829 Elevated white blood cell count, unspecified; Z20.822 Contact with and (suspected) exposure to COVID-19; F17.210 Nicotine dependence, cigarettes, uncomplicated; E78.5 Hyperlipidemia, unspecified; I10 Essential (primary) hypertension; F41.9 Anxiety disorder, unspecified; F32.A Depression, unspecified; Z79.899 Other long term (current) drug therapy
CPT/HCPCS: 36415; 71045; 80053; 83690; 83880; 84484; 85025; 85380; 85610; 85730; 87637; 93005; 99284; A9270

== ENCOUNTER 2025-01-03 10:05 | Emergency (ER) | payer MEDICARE, MEDICAID, SELFPAY ==
--- NOTE | ~2025-01-03 | XR_ITS ---
Examination: XR chest 2V Clinical History: palpitations DIZZINESS FATIGUE HX AFIB Comparison: 07/04/2024 Technique: PA and Lateral Findings: Cardiomediastinal silhouette normal size and configuration. Apparent persistent bibasilar airspace opacities. No acute bony abnormality. IMPRESSION: 1. Apparent persistent bibasilar airspace opacities; Overlying soft tissue artifact versus airspace disease. Recommend short-term follow-up exams. Reviewed, dictated and finalized at location R. IMPRESSION: 1. Apparent persistent bibasilar airspace opacities; Overlying soft tissue art ifact versus airspace disease. Recommend short-term follow-up exams.
--- NOTE | 2025-01-03 10:08 | ECG_ITS ---
Test Date: 2025-01-03 10:16:51 Measurements Intervals [place] Rate: 76 P: 50 FL: 157 QRS: 40 QRSD: 105 T: 51 QT: 375 QTc: 424 Interpretive Statements SINUS RHYTHM WITH OCCASIONAL VENTRICULAR PREMATURE COMPLEXES ABNORMAL ECG Compared to ECG 07/04/2024 09:47:53 Intraventricular conduction delay no longer present Electronically Signed On 01-03-2025 13:06:16 CDT by Rogelio Skelton M.D.
[2025-01-03 10:09] VITALS: BP 136/79; PULSE 78; RESP 17; TEMP 36.6; O2SAT 94
[2025-01-03 10:17] VITALS: PULSE 81
[2025-01-03 10:27] LABS: Hematocrit 43.3 % (37.0-47.0); Hemoglobin 13.9 g/dL (12.0-15.0); Immature Granulocyte Percent A 0.3 % (0-0.5); Lymphocytes Absolute Auto 2.50 K/mm3 (0.9-3.2); Mean Corpuscular HGB Conc 32.1 g/dl (32-36); Mean Corpuscular Hemoglobin 30.4 pg (26-34); Mean Corpuscular Volume 94.7 fl (80-100); Nucleated Red Blood Cells Absolute Auto 0.000 K/mm3 (0.0-0.012); Nucleated Red Blood Cells Perc 0.0 % (0.0-0.2); Platelet Count Result 246 k/mm3 (150-375); Red Blood Count 4.57 M/mm3 (4.2-5.4); White Blood Count 7.5 K/mm3 (4.5-10.0)
[2025-01-03 10:39] LABS: Alanine Aminotransferase 23 U/L (6-35); Albumin Level 3.8 g/dL (3.5-5.1); Alkaline Phosphatase 105 U/L (38-126); Anion Gap 6 mmol/L (4-12); Aspartate Amino Transferase 32 U/L (14-36); Bilirubin,Total 0.3 mg/dL (0.2-1.3); Blood Urea Nitrogen 15 mg/dL (7-17); Calcium 8.5 mg/dL (8.4-10.2); Carbon Dioxide 24 mmol/L (22-30); Chloride 106 mmol/L (98-107); Estimated CRCL calculation 69 ml/min; Estimated Glomerular Filt Rate 56; Glucose 180 mg/dL (65-110); Lipase 234 U/L (23-300); Potassium 3.8 mmol/L (3.4-5.0); Sodium 136 mmol/L (137-145); Total Protein 7.6 g/dL (6.3-8.2)
[2025-01-03 10:40] LABS: INR 1.0; Partial Thromboplastin Time 27.8 Seconds (22.3-36.8); Prothrombin Time 13.5 Seconds (11.1-14.7)
[2025-01-03 10:50] LABS: Troponin I < 0.012 ng/mL (0.000-0.034)
[2025-01-03 10:56] LABS: Magnesium 1.8 mg/dL (1.6-2.3)
[2025-01-03 11:05] LABS: Schistocytes None Seen
[2025-01-03 12:25] VITALS: BP 154/89; PULSE 70; RESP 17; O2SAT 97
--- NOTE | 2025-01-03 12:45 | ED.ARRPALP ---
HPI - Arrhythmia/Palpitations General Chief Complaint: Arrhythmia/Palpitations Stated Complaint: irregular heart rate Time Seen by Provider: 01/03/25 10:11 History of Present Illness HPI narrative: Patient is a 59-year-old female who presents ER with palpitations. She has sensation that her heart is skipping beats. She has had history of this in the past. This is worsened typically is. No fevers or chills or sweats. No nausea or vomiting. No exertional chest pain. No syncope. After discussing medications it was discovered that she forgot to take her metoprolol 100 mg last night. She has a commercial photographer at [facility] that she has not seen, they also had some outpatient testing they want performed that she has not been able to get to yet. Related Data Home Medications ?Medication ?Instructions ?Recorded ?Confirmed ?Last Taken ?Type alprazolam 1 mg tablet 1 mg PO QID PRN Anxiety 09/24/20 08/21/21 02/13/21 History hydrocodone 7.5 mg-acetaminophen 1 tablet PO QID PRN Pain 09/24/20 08/21/21 02/13/21 History 325 mg tablet metoprolol tartrate 100 mg tablet 100 mg PO BID 09/24/20 08/21/21 02/13/21 History topiramate 100 mg tablet 100 mg PO TID 09/24/20 08/21/21 02/13/21 History venlafaxine 75 mg tablet,extended 75 mg PO BID 09/24/20 08/21/21 02/13/21 History release 24 hr albuterol sulfate 90 mcg/actuation 2 puff inhalation QID PRN 12/03/20 08/21/21 02/13/21 History aerosol inhaler (Ventolin HFA) Shortness Of Breath Or Wheezing magnesium carb,citrate,oxide mg PO 08/20/21 08/21/21 Unknown History Allergies Allergy/AdvReac Type Severity Reaction Status Date / Time Penicillins Allergy Intermediate Rash Verified 07/04/24 10:47 Review of Systems Review of Systems: All systems reviewed & are unremarkable except as noted in HPI and below Constitutional: Constitutional: Reports no additional constitutional complaints ENT: Reports system reviewed and no additional complaints, except as documented Cardiovascular: Cardiovascular: Reports no additional cardiovascular complaints Respiratory: Respiratory: Reports no additional respiratory complaints Musculoskeletal: Musculoskeletal: Reports no additional musculoskeletal complaints PMFSH Past Medical History Medical History (Updated 01/03/25 @ 12:49 by Quang Santoyo MD) Obese HLD (hyperlipidemia) History of hypertension History of supraventricular tachycardia History of SVT and hypertension, which she takes metoprolol for now. Migraines Depression Anxiety Tobacco abuse Chronic pain Peripheral neuropathy Surgical History Surgical History History of tubal ligation History of right nephrectomy History of esophagogastroduodenoscopy (EGD) EGD with dilatation of an esophageal stricture in 2010. Family History Family History Father Asthma Cancer Hypertension Thyroid disorder Son Asthma Depression Other Asthma Mother Diabetes mellitus Hypertension Heart disease CHF (congestive heart failure) Other Hypertension Heart disease Other No pertinent family history Social History Social History Social History: The patient lives at home with her daughter. She wishes to be a full code. She does not have a durable healthcare power of power plant superintendent, but wishes that her daughter would make decisions for her if she became unable to do so. Smoking packs per day: 1.25 Smoking cigarettes per day: 25.0 Years smoked: 40 Smoking pack-years: 50.00 Smoking status: Current every day smoker Tobacco type: cigarettes Alcohol intake: never Substance use: never Substance use type: does not use Living arrangements: with family Occupation/Education: other Additional occupation/education comments: On disability Gender identity (if verbalized by the patient): Female Spiritual care concerns: No Exam Narrative: GENERAL: Well-appearing, well-nourished, and in no acute distress. HEAD: Normocephalic, atraumatic. ENT: Mucous membranes moist. CHEST: Clear to auscultation. No respiratory distress. HEART: Regular rate and rhythm with frequent dropped beat. Normal peripheral pulses. ABDOMEN: Soft, nontender, nondistended. EXTREMITIES: Normal range of motion. No edema. SKIN: Warm, dry, no rash. NEURO: Alert and oriented x3. PSYCH: Normal mood and affect. Course Course Emergency Course: Patient resting comfortably. CMP/CBC normal. Mild elevated glucose at 180. Troponin negative. Patient with frequent PVCs. Discussed continuing metoprolol, avoiding caffeine/stress, and following up with commercial photographer. Patient did take her home dose metoprolol 100 mg while she was here in the ER. Vital Signs Vital signs: Vital Signs Temperature 97.8 F 01/03/25 10:09 Pulse Rate 78 01/03/25 10:09 Respiratory Rate 17 01/03/25 10:09 Blood Pressure 136/79 01/03/25 10:09 Pulse Oximetry 94 01/03/25 10:09 Oxygen Delivery Room Air 01/03/25 10:09 Temperature 97.8 F 01/03/25 10:09 Pulse Rate 70 01/03/25 12:25 Respiratory Rate 17 01/03/25 12:25 Blood Pressure 154/89 H 01/03/25 12:25 Pulse Oximetry 97 01/03/25 12:25 Oxygen Delivery Room Air 01/03/25 10:09 MDM - Arrhythmia/Palpitations Lab Data 01/03/25 10:21 01/03/25 10:21 Labs: Lab Results 01/03/25 Range/Units 10:21 WBC 7.5 (4.5-10.0) K/mm3 RBC 4.57 (4.2-5.4) M/mm3 Hgb 13.9 (12.0-15.0) g/dL Hct 43.3 (37.0-47.0) % MCV 94.7 (80-100) fl MCH 30.4 (26-34) pg MCHC 32.1 (32-36) g/dl RDW 13.8 (11.5-14.5) % Plt Count 246 (150-375) k/mm3 MPV 9.6 (7.4-10.4) fl Immature Gran % (Auto) 0.3 (0-0.5) % Neut % (Auto) 54.3 (45.5-73.1) % Lymph % (Auto) 33.2 (18.3-44.2) % Greenlee % (Auto) 7.0 (2.6-8.5) % Eos % (Auto) 4.5 H (0-4.4) % Baso % (Auto) 0.7 (0.2-1.2) % Lymph # (Auto) 2.50 (0.9-3.2) K/mm3 Greenlee # (Auto) 0.5 (0.1-0.6) K/mm3 Eos # (Auto) 0.3 (0-0.3) K/mm3 Baso # (Auto) 0.1 (0.0-0.1) K/mm3 Abs Immat Gran (auto) 0.02 (0.00-0.031) K/mm3 Absolute Neuts (auto) 4.1 (1.3-6.7) K/mm3 Absolute Nucleated RBC 0.000 (0.0-0.012) K/mm3 Band Neutrophils % Not Reportable Nucleated RBC % 0.0 (0.0-0.2) % Atypical Lymphocytes Present Platelet Estimate Adequate (Adequate) Schistocytes None seen PT 13.5 (11.1-14.7) Seconds INR 1.0 APTT 27.8 (22.3-36.8) Seconds Sodium 136 L (137-145) mmol/L Potassium 3.8 (3.4-5.0) mmol/L Chloride 106 (98-107) mmol/L Carbon Dioxide 24 (22-30) mmol/L Anion Gap 6 (4-12) mmol/L BUN 15 (7-17) mg/dL Creatinine 1.02 H (0.7-1.0) mg/dL Estim Creat Clear Calc 69 ml/min Estimated GFR 56 L (59 - ) Glucose 180 H (65-110) mg/dL Calcium 8.5 (8.4-10.2) mg/dL Magnesium 1.8 (1.6-2.3) mg/dL Total Bilirubin 0.3 (0.2-1.3) mg/dL AST 32 (14-36) U/L ALT 23 (6-35) U/L Alkaline Phosphatase 105 (38-126) U/L Troponin I < 0.012 (0.000-0.034) ng/mL Total Protein 7.6 (6.3-8.2) g/dL Albumin 3.8 (3.5-5.1) g/dL Lipase 234 (23-300) U/L Imaging Data Radiologist's impression: ITS Impressions Chest X-Ray 01/03/25 10:52 IMPRESSION: 1. Apparent persistent bibasilar airspace opacities; Overlying soft tissue artifact versus airspace disease. Recommend short-term follow-up exams. ECG Data EKG #1: ECG completion date: 01/03/25 ECG completion time: 10:16 EKG Interpretation: normal rate (76), sinus rhythm, PVCs, normal QRS and normal QT Discharge Plan Discharge Clinical Impression: PVC (premature ventricular contraction) Patient Disposition: Home Condition: Stable Instructions: Premature Ventricular Contractions (ED) Additional Instructions: Please return to the emergency department if you develop severe and persistent chest pain, difficulty breathing, dizziness, leg swelling or if you are coughing up blood as these can be signs of a medical emergency. Please call your doctor for a follow up appointment to determine the need for further testing. Make sure to follow-up with your commercial photographer as well. Patient Language: Serbian Prescriptions: No Action magnesium carb,citrate,oxide 300 mg magnesium tablet PO mupirocin 2 % ointment 1 applic topical BID Qty: 22 0RF fluticasone propionate [Flonase Allergy Relief] 50 mcg/actuation spray,suspension 2 spray intranasal BID Qty: 16 3RF Rx Instructions: administer into each nostril azithromycin 250 mg tablet See Rx Instructions PO .COMPLEX Qty: 6 0RF Rx Instructions: For 250 mg dose pack: take 500 mg today (day 1), then 250 mg for 4 days (days 2-5) PO alprazolam 1 mg Tablet 1 mg PO QID PRN (Reason: Anxiety) metoprolol tartrate 100 mg Tablet 100 mg PO BID topiramate 100 mg Tablet 100 mg PO TID venlafaxine 75 mg Tablet Extended Release 24hr 75 mg PO BID hydrocodone-acetaminophen 7.5-325 mg tablet 1 tablet PO QID PRN (Reason: Pain) albuterol sulfate [Ventolin HFA] 90 mcg/actuation HFA aerosol inhaler 2 puff INHALATION QID PRN (Reason: Shortness Of Breath Or Wheezing) prednisone 20 mg tablet 40 mg PO DAILY 5 Days Qty: 10 0RF acetaminophen 500 mg tablet 1,000 mg PO TID PRN (Reason: nicole) 7 Days Qty: 42 0RF ibuprofen 800 mg tablet 800 mg PO TID PRN (Reason: pain) 7 Days Qty: 21 0RF methocarbamol 750 mg tablet 1,500 mg PO TID Qty: 35 0RF lidocaine 5 % adhesive patch,medicated 1 patch topical DAILY Qty: 15 0RF Rx Instructions: leave on most painful area for up to 12 hrs omeprazole 20 mg capsule,delayed release(/EC) See Rx Instructions .ROUTE .COMPLEX Qty: 90 3RF Dose Instruction: TAKE 1 CAPSULE BY MOUTH DAILY Rx Instructions: TAKE 1 CAPSULE BY MOUTH DAILY Follow-up/Referrals: Sal,Cedric Estevez MD [Primary Care Provider] - 1 Week
== END 2025-01-03 13:32 | disposition home or self-care (01) ==
PROVIDERS: Emergency Provider Emergency Medicine; PCP Internal Medicine
DX: I49.3 Ventricular premature depolarization (principal); E78.5 Hyperlipidemia, unspecified; I10 Essential (primary) hypertension; G62.9 Polyneuropathy, unspecified; F32.A Depression, unspecified; F41.9 Anxiety disorder, unspecified; F17.210 Nicotine dependence, cigarettes, uncomplicated; Z90.5 Acquired absence of kidney; Z79.899 Other long term (current) drug therapy
CPT/HCPCS: 36415; 71046; 80053; 83690; 83735; 84484; 85025; 85610; 85730; 93005; 99284

== ENCOUNTER 2025-01-17 18:46 | Emergency (ER) | payer MEDICARE, MEDICAID, SELFPAY ==
--- NOTE | 2025-01-17 18:50 | ED.WOUNDLAC ---
HPI - Wound/Laceration General Chief Complaint: Wound/Laceration Stated Complaint: dropped a knife on right foot Time Seen by Provider: 01/17/25 18:50 Source: patient Mode of arrival: ambulatory Limitations: no limitations History of Present Illness HPI narrative: Patient is a 60-year-old female who presents with superficial laceration to right foot. Patient states she dropped a knife onto foot. Patient has peripheral neuropathy and is not having any pain at this time. Tetanus shot was updated 2 years ago. No active bleeding. Related Data Home Medications ?Medication ?Instructions ?Recorded ?Confirmed ?Last Taken ?Type hydrocodone 7.5 mg-acetaminophen 1 tablet PO QID PRN Pain 09/24/20 08/21/21 02/13/21 History 325 mg tablet metoprolol tartrate 100 mg tablet 100 mg PO BID 09/24/20 08/21/21 02/13/21 History topiramate 100 mg tablet 100 mg PO TID 09/24/20 08/21/21 02/13/21 History venlafaxine 75 mg tablet,extended 75 mg PO BID 09/24/20 08/21/21 02/13/21 History release 24 hr albuterol sulfate 90 mcg/actuation 2 puff inhalation QID PRN 12/03/20 08/21/21 02/13/21 History aerosol inhaler (Ventolin HFA) Shortness Of Breath Or Wheezing magnesium carb,citrate,oxide mg PO 08/20/21 08/21/21 Unknown History alprazolam 0.5 mg tablet mg 01/17/25 Unknown History losartan 25 mg tablet mg 01/17/25 Unknown History Allergies Allergy/AdvReac Type Severity Reaction Status Date / Time Penicillins Allergy Intermediate Rash Verified 01/17/25 18:48 Review of Systems Review of Systems: All systems reviewed & are unremarkable except as noted in HPI and below Constitutional: Constitutional: Denies body ache(s), Denies chills, Denies fatigue, Denies fever(s), Denies headache(s), Denies malaise and Denies weakness Eyes: Eyes: Denies blurry vision, Denies irritation and Denies loss of vision ENT: Denies otalgia, Denies headache(s), Denies nasal discharge, Denies sinus pain and Denies sore throat Cardiovascular: Cardiovascular: Denies chest pain, Denies irregular heart rhythm and Denies dyspnea Respiratory: Respiratory: Denies dyspnea Gastrointestinal: Gastrointestinal: Denies abdominal pain, Denies melena, Denies hematochezia, Denies diarrhea, Denies nausea and Denies vomiting Musculoskeletal: Musculoskeletal: Denies back pain, Denies myalgias and Denies arthralgias Integumentary/Breasts: Skin/Breast: Denies pruritus, Denies rash and Reports wounds Neurologic: Denies headache(s), Denies loss of vision and Denies weakness Psychiatric: Psychiatric: Reports no additional psychiatric complaints Endocrine: Endocrine: Denies fatigue [facility] Past Medical History Medical History Obese HLD (hyperlipidemia) History of hypertension History of supraventricular tachycardia History of SVT and hypertension, which she takes metoprolol for now. Migraines Depression Anxiety Tobacco abuse Chronic pain Peripheral neuropathy Surgical History Surgical History History of tubal ligation History of right nephrectomy History of esophagogastroduodenoscopy (EGD) EGD with dilatation of an esophageal stricture in 2010. Family History Family History Father Asthma Cancer Hypertension Thyroid disorder Son Asthma Depression Other Asthma Mother Diabetes mellitus Hypertension Heart disease CHF (congestive heart failure) Other Hypertension Heart disease Other No pertinent family history Social History Social History Social History: The patient lives at home with her daughter. She wishes to be a full code. She does not have a durable healthcare power of civil rights attorney, but wishes that her daughter would make decisions for her if she became unable to do so. Smoking packs per day: 1.25 Smoking cigarettes per day: 25.0 Years smoked: 40 Smoking pack-years: 50.00 Smoking status: Current every day smoker Tobacco type: cigarettes Alcohol intake: never Substance use: never Substance use type: does not use Living arrangements: with family Occupation/Education: other Additional occupation/education comments: On disability Gender identity (if verbalized by the patient): Female Spiritual care concerns: No Comments At time of signature, agree with nursing past medical, surgical, social and family history. There is no relevant family history pertinent to the presenting complaint. Exam Const: General: cooperative, healthy appearing, comfortable, no acute distress and well nourished Nutritional Appearance: well nourished Orientation/consciousness: patient oriented x3 Limitations: no limitations HENMT: Head: normal to inspection, normocephalic and atraumatic Ears: hearing grossly normal bilaterally and external ears normal Face/Nose/Sinus: Normal external nose present, normal facial exam and face symmetric Face and sinus: normal facial exam and face symmetric Mouth: Yes lip normal Eyes: General: appearance normal, both eyes and all related structures Alignment and Position: alignment normal and position normal Periorbital: periorbital findings normal Eyelids: eyelids normal Pupils: Equal, round and reactive pupils present EOM: EOMs intact bilaterally Neck: Neck: normal visual inspection, full ROM and supple Chest: Chest palpation & inspection: normal inspection of the chest Resp: Effort & Inspection: normal respiratory effort and able to speak in complete sentences Auscultation: clear to auscultation bilaterally Cardio: Rate: regular rate Rhythm: regular rhythm Heart sounds: S1 normal heart sound present and S2 normal heart sound present GI: Inspection: normal to inspection Skin: General skin exam: normal color and no rashes or lesions noted Neuro: General: patient oriented x3 and moves all extremities Cranial nerves: Yes Equal, round and reactive pupils present Speech: normal speech Gait exam (Neuro): Normal gait present Extrem: General: normal to inspection, full ROM and no edema Ankle/foot/toe images:  1. 1 cm superficial laceration 2. 1 cm superficial laceration Psych: Appearance: grossly normal and well kempt Mental Status: mental status grossly normal Speech and movement: Normal speech and movement present Affect: normal affect Attitude: cooperative Thought process: Normal thought process present Course Course Emergency Course: Patient is aware of diagnosis, understands and agrees to treatment plan. Anticipatory guidance given. Patient agrees to follow-up as directed and is aware of reasons to seek care at the emergency department. Portions of this record may have been created with voice recognition software Level of Care: Express Care Visit Vital Signs Vital signs: Reviewed Procedures Laceration Laceration 1: Date: 01/17/25 Time: 19:25 Site: lower extremity Side (If applicable): right Size (cm): 2 Description: linear Depth: simple, single layer Pre-repair: irrigated extensively ====== Skin Level ====== Skin layer closed with: dermabond and steri strips ====== Subcutaneous Layer ====== ====== Muscle Layer ====== ====== Tendon Layer ====== Dressing: Procedure explained to patient. Verbal consent obtained. Two 1 cm lacerations Steri-Strips and wound. No active bleeding. Well-approximated MDM - Wound/Laceration MDM Narrative Medical decision making narrative: Two 1 cm lacerations Steri-Strips and wound. No active bleeding. Well-approximated. Tetanus shot up-to-date Pt well hydrated appearing, in no respiratory distress, hemodynamically stable. Recommend supportive care. The patient is stable at time of discharge the clinical impression was discussed and the patient was given the opportunity to ask questions, which were addressed as completely as possible given the information available at present. Anticipatory guidance and return to care precautions were discussed and the importance of primary care follow-up was stressed and encouraged. The patient voiced understanding of the plan, indications to return, and the need for follow-up. Exam findings show no acute concerns or changes Patient is appropriate for outpatient treatment and follow-up. Differential Diagnosis Differential diagnosis: Likely laceration Medical Records Attestation: I reviewed the patient's medical records. Discharge Plan Discharge Clinical Impression: Laceration Patient Disposition: Home Condition: Stable Instructions: Laceration (ED) Additional Instructions: Skin adhesive care: -adhesive works like a bandage; do not use antibiotic onitment as it can break down the adhesive -You can shower while the adhesive is on your skin, but do not take a bath or soak or scrub the area for 7-10 days. Dry your skin by patting it gently with a towel. -The adhesive will peel off on its own; usually by 5-10days. If after 10 days, you still have adhesive on you, you can use antibiotic ointment or petroleum jelly to get it off. After you heal, you should protect the scar from the sun. Use sunscreen on the area or wear clothes or a hat that covers the scar. Follow up with your PCP is needed Your blood pressure was elevated above 120/80 today at Urgent Care. This puts you above the threshold for follow up visit with a primary care provider. High blood pressure does not usually cause any symptoms, however it may lead to kidney failure, stroke, heart disease just to name a few if untreated . Many people are anxious when seeing a provider or nurse. As a result, you are not diagnosed with hypertension at this time unless your blood pressure is persistently high at two office visits at least one week apart. Some things that can help lower blood pressure are lifestyle modifications, such as light exercise, decreased salt in diet, and weight loss. It is important to follow up with a PCP about this within 1 week. Patient Language: Syriac Prescriptions: No Action magnesium carb,citrate,oxide 300 mg magnesium tablet PO mupirocin 2 % ointment 1 applic topical BID Qty: 22 0RF fluticasone propionate [Flonase Allergy Relief] 50 mcg/actuation spray,suspension 2 spray intranasal BID Qty: 16 3RF Rx Instructions: administer into each nostril azithromycin 250 mg tablet See Rx Instructions PO .COMPLEX Qty: 6 0RF Rx Instructions: For 250 mg dose pack: take 500 mg today (day 1), then 250 mg for 4 days (days 2-5) PO alprazolam 1 mg Tablet 1 mg PO QID PRN (Reason: Anxiety) metoprolol tartrate 100 mg Tablet 100 mg PO BID topiramate 100 mg Tablet 100 mg PO TID venlafaxine 75 mg Tablet Extended Release 24hr 75 mg PO BID hydrocodone-acetaminophen 7.5-325 mg tablet 1 tablet PO QID PRN (Reason: Pain) albuterol sulfate [Ventolin HFA] 90 mcg/actuation HFA aerosol inhaler 2 puff INHALATION QID PRN (Reason: Shortness Of Breath Or Wheezing) prednisone 20 mg tablet 40 mg PO DAILY 5 Days Qty: 10 0RF acetaminophen 500 mg tablet 1,000 mg PO TID PRN (Reason: nicole) 7 Days Qty: 42 0RF ibuprofen 800 mg tablet 800 mg PO TID PRN (Reason: pain) 7 Days Qty: 21 0RF methocarbamol 750 mg tablet 1,500 mg PO TID Qty: 35 0RF lidocaine 5 % adhesive patch,medicated 1 patch topical DAILY Qty: 15 0RF Rx Instructions: leave on most painful area for up to 12 hrs omeprazole 20 mg capsule,delayed release(DR/EC) See Rx Instructions .ROUTE .COMPLEX Qty: 90 3RF Dose Instruction: TAKE 1 CAPSULE BY MOUTH DAILY Rx Instructions: TAKE 1 CAPSULE BY MOUTH DAILY Follow-up/Referrals: Sal,Cedric Estevez MD [Primary Care Provider] - 3 Days Time of Disposition: 19:25
[2025-01-17 18:54] VITALS: BP 149/83; PULSE 85; RESP 18; TEMP 36.7; O2SAT 97
== END 2025-01-17 19:30 | disposition home or self-care (01) ==
PROVIDERS: Emergency Provider Nurse Practitioner Family; PCP Internal Medicine
DX: S91.311A Laceration without foreign body, right foot, initial encounter (principal); S91.114A Laceration without foreign body of right lesser toe(s) without damage to nail, initial encounter; W26.0XXA Contact with knife, initial encounter; F17.210 Nicotine dependence, cigarettes, uncomplicated; I10 Essential (primary) hypertension; E78.5 Hyperlipidemia, unspecified; E66.9 Obesity, unspecified; Z68.38 Body mass index [BMI] 38.0-38.9, adult; G62.9 Polyneuropathy, unspecified; F41.9 Anxiety disorder, unspecified; F32.A Depression, unspecified; Z90.5 Acquired absence of kidney
CPT/HCPCS: 12001; 99212; G0463

== ENCOUNTER 2025-04-03 09:39 | Outpatient (CLI) | payer MEDICARE, MEDICAID, SELFPAY ==
--- NOTE | ~2025-04-03 | CT_ITS ---
EXAM/PROCEDURE: CT abdomen pelvis wo con HISTORY: LLQ pain COMPARISON: October 08, 2020 TECHNIQUE: Noncontrast CT of the abdomen and pelvis FINDINGS: The lung bases are clear and heart size normal. In the abdomen and pelvis, the bowel gas pattern is nonobstructive with no free air free fluid or pneumatosis. Mild to moderate diverticular disease in the sigmoid colon with no gross acute diverticulitis. Small to moderate amount of stool extends to the cecum. No grossly inflamed appendix. No AAA or hydroureteronephrosis. Right kidney absent. Anteverted uterus and adnexal regions unremarkable. Lipomatous changes and/or herniation the posterior right flank region just below the right 11th posterior rib is unchanged in appearance. Moderately severe diffuse fatty infiltrative changes of the liver. Significantly more advanced fatty infiltration in the caudate lobe. Gallbladder contracted. No gross acute process seen involving the stomach and adrenal glands pancreas or liver. Diffuse degenerative changes throughout the bones. Mild diffuse infiltrative changes in the subcutaneous soft tissues anteriorly in the mid and lower pelvic region but no drainable fluid collection. IMPRESSION: Directed noncontrast exam demonstrating no acute surgical abnormality. No intraperitoneal acute process seen. Mild strandy changes in the anterior subcutaneous soft tissues in the mid and lower pelvis of uncertain significance; correlate with clinical presentation and exam. Reviewed, dictated and finalized at location A. OSAL WORKER IMPRESSION: Directed noncontrast exam demonstrating no acute surgical abnormality. No intra peritoneal acute process seen. Mild strandy changes in the anterior subcutaneou s soft tissues in the mid and lower pelvis of uncertain significance; correlate with clinical presentation and exam.
== END 2025-04-03 09:40 | disposition home or self-care (01) ==
PROVIDERS: PCP Internal Medicine; Visit Provider Internal Medicine
DX: R10.32 Left lower quadrant pain (principal)
CPT/HCPCS: 74176